=== PATIENT | female | born 1980 | race Caucasian/White ===

== ENCOUNTER 2017-11-12 04:23 | Inpatient (IN) | payer OTHER ==
[2017-11-12] MEDS ORDERED: NACL 0.9% 1000 ML 1,000 ML IV ONE ×3 (05:37→14:19)
[2017-11-12 06:00] LABS: Hematocrit 41.4 % (30.3-42.9); Hemoglobin 13.3 gm/dl (10.1-14.3); Mean Corpuscular HGB Conc 32 % (30-34); Mean Corpuscular Hemoglobin 31 pg (28-32); Mean Corpuscular Volume 97 fl (79-97); Platelet Count 367 K/mm3 (140-440); Red Blood Count 4.29 M/mm3 (3.65-5.03); Red Cell Distribution Width 14.3 % (13.2-15.2)
[2017-11-12 06:22] LABS: Alanine Aminotransferase 16 units/L (7-56); Albumin 4.7 g/dL (3.9-5); BUN/Creatinine Ratio 28; Blood Urea Nitrogen 22 mg/dL (7-17); Calcium 9.6 mg/dL (8.4-10.2); Hemolysis Index 7
[2017-11-12 06:44] LABS: Bacteria,Urine 1+ /HPF (Negative); Bilirubin,Urine NEG (Negative); Blood,Urine LG (Negative); Color,Urine Yellow (Yellow); Mucus,Urine FEW /HPF; Urobilinogen,Urine < 2.0 mg/dL (<2.0)
[2017-11-12] MEDS ORDERED: NACL 0.9% 1000 ML IV ONE (06:47)
[2017-11-12] MEDS ORDERED: SUBLIMAZE IV ONE (06:49)
[2017-11-12] MEDS ORDERED: ZOFRAN IV ONE (06:49)
[2017-11-12] MEDS ORDERED: D50W (25GM) Syringe IV PRN ×2 (06:58→09:55)
[2017-11-12] MEDS ORDERED: HumuLIN R IV ONE (06:58)
[2017-11-12] MEDS ORDERED: SODIUM BICARBONATE IV ONE ×6 (06:58→15:00)
--- NOTE | 2017-11-12 06:59 | Emergency Department Report ---
ED General Adult HPI - General Chief complaint: Abdominal Pain Stated complaint: DIZZINESS/EMESIS/ABD PAIN Source: patient Mode of arrival: Ambulatory Limitations: No Limitations - History of Present Illness Initial comments: This is a 37-year-old female who is not known to this provider, who reports a past medical history of diabetes. She presents to the ER with a complaint of "diabetes." She reports that she has not taken her insulin since Sunday, and has diffuse abdominal pain, nausea, weakness, fatigue and malaise. The patient' s symptoms have been constant for the past 8 hours, they do not radiate anywhere , and the increased with palpation and they decrease with rest. -: Sudden Location: abdomen Radiation: non-radiation Quality: aching Consistency: constant Improves with: rest Worsens with: movement Associated Symptoms: loss of appetite, malaise, nausea/vomiting, weakness. denies: confusion, chest pain, cough, diaphoresis, fever/chills, headaches, rash , seizure, shortness of breath, syncope - Related Data Allergies Allergy/AdvReac Type Severity Reaction Status Date / Time No Known Allergies Allergy Unverified 11/12/17 05:28 ED Review of Systems ROS: Stated complaint: DIZZINESS/EMESIS/ABD PAIN Other details as noted in HPI Comment: All other systems reviewed and negative ED Past Medical Hx - Past Medical History Previous Medical History?: Yes Hx Diabetes: Yes - Surgical History Past Surgical History?: No - Social History Smoking Status: Never Smoker ED Physical Exam - General Limitations: No Limitations General appearance: lethargic, in distress - Head Head exam: Present: atraumatic, normocephalic - Eye Eye exam: Present: normal appearance, EOMI. Absent: nystagmus - ENT ENT exam: Present: mucous membranes dry - Neck Neck exam: Present: normal inspection, full ROM - Respiratory Respiratory exam: Present: normal lung sounds bilaterally. Absent: respiratory distress - Cardiovascular Cardiovascular Exam: Present: regular rate, normal rhythm, normal heart sounds. Absent: bradycardia, tachycardia, irregular rhythm, systolic murmur, diastolic murmur, rubs, gallop - GI/Abdominal GI/Abdominal exam: Present: soft, tenderness. Absent: distended, guarding, rebound, rigid, pulsatile mass - Extremities Exam Extremities exam: Present: normal inspection, full ROM, other (2+ pulses noted in the bilateral upper, lower extremities. Compartments soft. No long bony tenderness. The pelvis is stable.). Absent: pedal edema, joint swelling, calf tenderness - Back Exam Back exam: Present: normal inspection, full ROM. Absent: tenderness, CVA tenderness (R), paraspinal tenderness, vertebral tenderness - Neurological Exam Neurological exam: Present: alert, oriented X3, CN II-XII intact, other ( Extraocular movements intact. Tongue midline. No facial droop. Facial sensation intact to light touch in the V1, V2, V3 distribution bilaterally. 5 and 5 strength in 4 extremities.. Sensation is intact to light touch in 4 extremities.). Absent: motor sensory deficit - Psychiatric Psychiatric exam: Present: anxious - Skin Skin exam: Present: warm, dry, intact, normal color. Absent: rash ED Course Vital Signs 11/12/17 11/12/17 11/12/17 05:30 06:36 06:45 Temperature 97.6 F Pulse Rate 94 H 103 H Respiratory 12 24 Rate Blood Pressure 102/65 111/41 Blood Pressure [Left] O2 Sat by Pulse 97 100 100 Oximetry 11/12/17 11/12/17 11/12/17 06:55 07:01 07:15 Temperature 95.5 F L Pulse Rate 103 H 100 H 106 H Respiratory 16 23 23 Rate Blood Pressure 110/63 95/45 Blood Pressure 111/41 [Left] O2 Sat by Pulse 100 100 100 Oximetry 11/12/17 07:16 Temperature Pulse Rate Respiratory 16 Rate Blood Pressure Blood Pressure [Left] O2 Sat by Pulse Oximetry ED Medical Decision Making - Lab Data Result diagrams: 11/12/17 05:43 11/12/17 07:00 Vital Signs 11/12/17 11/12/17 11/12/17 05:30 06:36 06:45 Temperature 97.6 F Pulse Rate 94 H 103 H Respiratory 12 24 Rate Blood Pressure 102/65 111/41 Blood Pressure [Left] O2 Sat by Pulse 97 100 100 Oximetry 11/12/17 11/12/17 11/12/17 06:55 07:01 07:15 Temperature 95.5 F L Pulse Rate 103 H 100 H 106 H Respiratory 16 23 23 Rate Blood Pressure 110/63 95/45 Blood Pressure 111/41 [Left] O2 Sat by Pulse 100 100 100 Oximetry 11/12/17 07:16 Temperature Pulse Rate Respiratory 16 Rate Blood Pressure Blood Pressure [Left] O2 Sat by Pulse Oximetry Lab Results 11/12/17 11/12/17 11/12/17 Range/Units 05:43 05:43 05:43 WBC 20.3 H (4.5-11.0) K/mm3 RBC 4.29 (3.65-5.03) M/mm3 Hgb 13.3 (10.1-14.3) gm/dl Hct 41.4 (30.3-42.9) % MCV 97 (79-97) fl MCH 31 (28-32) pg MCHC 32 (30-34) % RDW 14.3 (13.2-15.2) % Plt Count 367 (140-440) K/mm3 VBG pH (7.320-7.420) Sodium 132 L (137-145) mmol/L Potassium 5.6 H (3.6-5.0) mmol/L Chloride 89.6 L (98-107) mmol/L Carbon Dioxide 6 L* (22-30) mmol/L Anion Gap 42 mmol/L BUN 22 H (7-17) mg/dL Creatinine 0.8 (0.7-1.2) mg/dL Estimated GFR > 60 ml/min BUN/Creatinine Ratio 28 % Glucose 623 H* (65-100) mg/dL Lactic Acid (0.7-2.0) mmol/L Calcium 9.6 (8.4-10.2) mg/dL Phosphorus (2.5-4.5) mg/dL Magnesium (1.7-2.3) mg/dL Total Bilirubin 0.20 (0.1-1.2) mg/dL AST 19 (5-40) units/L ALT 16 (7-56) units/L Alkaline Phosphatase 139 H (35-129) units/L Total Creatine Kinase (30-135) units/L Total Protein 8.1 (6.3-8.2) g/dL Albumin 4.7 (3.9-5) g/dL Albumin/Globulin Ratio 1.4 % Lipase (13-60) units/L HCG, Qual Negative (Negative) Urine Color (Yellow) Urine Turbidity (Clear) Urine pH (5.0-7.0) Ur Specific [place] (1.003-1.030) Urine Protein (Negative) mg/dL Urine Glucose (UA) (Negative) mg/dL Urine Ketones (Negative) mg/dL Urine Blood (Negative) Urine Nitrite (Negative) Urine Bilirubin (Negative) Urine Urobilinogen (<2.0) mg/dL Ur Leukocyte Esterase (Negative) Urine WBC (Auto) (0.0-6.0) /HPF Urine RBC (Auto) (0.0-6.0) /HPF U Epithel Cells (Auto) (0-13.0) /HPF Urine Bacteria (Auto) (Negative) /HPF Urine Mucus /HPF 11/12/17 11/12/17 11/12/17 Range/Units 05:43 05:43 06:06 WBC (4.5-11.0) K/mm3 RBC (3.65-5.03) M/mm3 Hgb (10.1-14.3) gm/dl Hct (30.3-42.9) % MCV (79-97) fl MCH (28-32) pg MCHC (30-34) % RDW (13.2-15.2) % Plt Count (140-440) K/mm3 VBG pH 7.022 L* (7.320-7.420) Sodium (137-145) mmol/L Potassium (3.6-5.0) mmol/L Chloride (98-107) mmol/L Carbon Dioxide (22-30) mmol/L Anion Gap mmol/L BUN (7-17) mg/dL Creatinine (0.7-1.2) mg/dL Estimated GFR ml/min BUN/Creatinine Ratio % Glucose (65-100) mg/dL Lactic Acid (0.7-2.0) mmol/L Calcium (8.4-10.2) mg/dL Phosphorus (2.5-4.5) mg/dL Magnesium (1.7-2.3) mg/dL Total Bilirubin (0.1-1.2) mg/dL AST (5-40) units/L ALT (7-56) units/L Alkaline Phosphatase (35-129) units/L Total Creatine Kinase (30-135) units/L Total Protein (6.3-8.2) g/dL Albumin (3.9-5) g/dL Albumin/Globulin Ratio % Lipase 15 (13-60) units/L HCG, Qual (Negative) Urine Color Yellow (Yellow) Urine Turbidity Clear (Clear) Urine pH 5.0 (5.0-7.0) Ur Specific [place] 1.022 (1.003-1.030) Urine Protein 30 mg/dl (Negative) mg/dL Urine Glucose (UA) >=500 (Negative) mg/dL Urine Ketones 80 (Negative) mg/dL Urine Blood Lg (Negative) Urine Nitrite Neg (Negative) Urine Bilirubin Neg (Negative) Urine Urobilinogen < 2.0 (<2.0) mg/dL Ur Leukocyte Esterase Neg (Negative) Urine WBC (Auto) 1.0 (0.0-6.0) /HPF Urine RBC (Auto) 71.0 (0.0-6.0) /HPF U Epithel Cells (Auto) 1.0 (0-13.0) /HPF Urine Bacteria (Auto) 1+ (Negative) /HPF Urine Mucus Few /HPF 11/12/17 11/12/17 11/12/17 Range/Units 07:00 07:00 07:00 WBC (4.5-11.0) K/mm3 RBC (3.65-5.03) M/mm3 Hgb (10.1-14.3) gm/dl Hct (30.3-42.9) % MCV (79-97) fl MCH (28-32) pg MCHC (30-34) % RDW (13.2-15.2) % Plt Count (140-440) K/mm3 VBG pH (7.320-7.420) Sodium (137-145) mmol/L Potassium (3.6-5.0) mmol/L Chloride (98-107) mmol/L Carbon Dioxide (22-30) mmol/L Anion Gap mmol/L BUN (7-17) mg/dL Creatinine (0.7-1.2) mg/dL Estimated GFR ml/min BUN/Creatinine Ratio % Glucose (65-100) mg/dL Lactic Acid 3.90 H* (0.7-2.0) mmol/L Calcium (8.4-10.2) mg/dL Phosphorus (2.5-4.5) mg/dL Magnesium 2.50 H (1.7-2.3) mg/dL Total Bilirubin (0.1-1.2) mg/dL AST (5-40) units/L ALT (7-56) units/L Alkaline Phosphatase (35-129) units/L Total Creatine Kinase 70 (30-135) units/L Total Protein (6.3-8.2) g/dL Albumin (3.9-5) g/dL Albumin/Globulin Ratio % Lipase (13-60) units/L HCG, Qual (Negative) Urine Color (Yellow) Urine Turbidity (Clear) Urine pH (5.0-7.0) Ur Specific [place] (1.003-1.030) Urine Protein (Negative) mg/dL Urine Glucose (UA) (Negative) mg/dL Urine Ketones (Negative) mg/dL Urine Blood (Negative) Urine Nitrite (Negative) Urine Bilirubin (Negative) Urine Urobilinogen (<2.0) mg/dL Ur Leukocyte Esterase (Negative) Urine WBC (Auto) (0.0-6.0) /HPF Urine RBC (Auto) (0.0-6.0) /HPF U Epithel Cells (Auto) (0-13.0) /HPF Urine Bacteria (Auto) (Negative) /HPF Urine Mucus /HPF 11/12/17 11/12/17 Range/Units 07:00 07:00 WBC (4.5-11.0) K/mm3 RBC (3.65-5.03) M/mm3 Hgb (10.1-14.3) gm/dl Hct (30.3-42.9) % MCV (79-97) fl MCH (28-32) pg MCHC (30-34) % RDW (13.2-15.2) % Plt Count (140-440) K/mm3 VBG pH (7.320-7.420) Sodium 134 L (137-145) mmol/L Potassium 5.5 H (3.6-5.0) mmol/L Chloride 90.7 L (98-107) mmol/L Carbon Dioxide 6 L* (22-30) mmol/L Anion Gap 43 mmol/L BUN 23 H (7-17) mg/dL Creatinine 0.8 (0.7-1.2) mg/dL Estimated GFR > 60 ml/min BUN/Creatinine Ratio 29 % Glucose 643 H* (65-100) mg/dL Lactic Acid (0.7-2.0) mmol/L Calcium 9.8 (8.4-10.2) mg/dL Phosphorus 7.20 H (2.5-4.5) mg/dL Magnesium (1.7-2.3) mg/dL Total Bilirubin (0.1-1.2) mg/dL AST (5-40) units/L ALT (7-56) units/L Alkaline Phosphatase (35-129) units/L Total Creatine Kinase (30-135) units/L Total Protein (6.3-8.2) g/dL Albumin (3.9-5) g/dL Albumin/Globulin Ratio % Lipase (13-60) units/L HCG, Qual (Negative) Urine Color (Yellow) Urine Turbidity (Clear) Urine pH (5.0-7.0) Ur Specific [place] (1.003-1.030) Urine Protein (Negative) mg/dL Urine Glucose (UA) (Negative) mg/dL Urine Ketones (Negative) mg/dL Urine Blood (Negative) Urine Nitrite (Negative) Urine Bilirubin (Negative) Urine Urobilinogen (<2.0) mg/dL Ur Leukocyte Esterase (Negative) Urine WBC (Auto) (0.0-6.0) /HPF Urine RBC (Auto) (0.0-6.0) /HPF U Epithel Cells (Auto) (0-13.0) /HPF Urine Bacteria (Auto) (Negative) /HPF Urine Mucus /HPF - Radiology Data Radiology results: report reviewed, image reviewed CT scan of the abdomen and pelvis with IV contrast is negative for acute disease. X-ray of the chest is negative for acute disease - Medical Decision Making Differential diagnosis, including but not limited to: Dehydration, pneumonia, urinary tract infection, intra-abdominal infection, diabetic ketoacidosis, sepsis, SIRS Assessment and plan: 37-year-old female who appears to be in diabetic ketoacidosis, with the most likely causative actor and medication noncompliance. She has an elevated lactic acid, leukocytosis and heart rate greater than 90 bpm. She therefore needs systemic inflammatory response syndrome criteria. I suspect that her abnormal vital signs and laboratory studies are secondary to the physiologic stress of her underlying endocrine crisis. By her history I do not suspect bacterial infection. However, she will be covered empirically with appropriate broad spectrum antibiotics. She will be resuscitated according to the sepsis pathway in diabetic ketoacidosis pathway. We have placed 2 pages to the critical-care physician mediation commissioner to arrange admission to the intensive care unit and we are currently awaiting callback. The case was presented to the Hospital physician, Dr. Walton, who graciously accept the patient on behalf of Dr. Arteaga Critical Care Time: Yes Critical care time in (mins) excluding proc time.: 35 Critical care attestation.: If time is entered above; I have spent that time in minutes in the direct care of this critically ill patient, excluding procedure time. ED Disposition Clinical Impression: SIRS (systemic inflammatory response syndrome) DKA (diabetic ketoacidoses) Qualifiers: Diabetes mellitus type: other specified (including SATURNINO) Diabetes mellitus complication detail: without coma Qualified Code(s): E13.10 - Other specified diabetes mellitus with ketoacidosis without coma Disposition: DC09 OP ADMIT IP TO THIS HOSP Is pt being admited?: Yes Condition: Critical Instructions: Diabetic Ketoacidosis (ED), Abdominal Pain (ED)
[2017-11-12] MEDS ORDERED: D5W/0.45% NACL/KCL 20 MEQ 20 MEQ/1,000 ML BAG IV SCH (07:00)
[2017-11-12] MEDS ORDERED: SODIUM CHLORIDE FLUSH SYRINGE 10 ML IV NR (07:00)
[2017-11-12] MEDS ORDERED: HumuLIN R 100 UNITS in NACL 0.9% 99 ML IV SCH ×2 (07:00→10:00)
[2017-11-12] MEDS: ZOSYN/NS 4.5GM/100ML 4.5 GM/100 ML VIAL IV SCH ×3 (07:19→17:34)
--- NOTE | 2017-11-12 07:19 | XRay Report ---
FINAL REPORT PROCEDURE: XR CHEST 1V AP TECHNIQUE: Chest radiograph anteroposterior view. CPT 37912 HISTORY: sepsis COMPARISON: No prior studies are available for comparison. FINDINGS: Heart: Normal. Mediastinum/Vessels: Normal. Lungs/Pleural space: Normal. Bony thorax: No acute osseous abnormality. Life support devices: None. IMPRESSION: No acute cardiopulmonary abnormality.
[2017-11-12 07:30] LABS: BUN/Creatinine Ratio 29; Blood Urea Nitrogen 23 mg/dL (7-17); Calcium 9.8 mg/dL (8.4-10.2); Hemolysis Index 37
--- NOTE | 2017-11-12 08:05 | Cat Scan Report ---
CT ABDOMEN PELVIS WITH CONTRAST: HISTORY: abdominal pain, sepsis. COMPARISON: none. TECHNIQUE: Helical CT in 1.25mm intervals following IV contrast. Sagittal and coronal reconstructions. FINDINGS: Lung bases: Normal. Liver: There is mild diffuse fatty infiltration throughout the liver. No enlargement or suspicious mass. 1 cm cavernous hemangiomas are noted in the left hepatic lobe and right hepatic lobe. Biliary system: Normal. Pancreas: Normal. Spleen: Normal. Kidneys/ureters/bladder: The kidneys and collecting systems are within normal limits. The bladder is moderately distended with simple appearing fluid. No bladder abnormality otherwise. Adrenal glands: Normal. Aorta: Normal. Intestines: Unremarkable given no oral contrast was administered. Appendix: Normal. Pelvic viscera: The uterus is at the upper limits of normal size. Approximately 5 or 6 myometrial masses are identified consistent with small fibroids. The adnexa are unremarkable. Ascites: None. Adenopathy: None. Musculoskeletal: Normal. IMPRESSION: No acute process is identified in the abdomen or pelvis. Mild fatty infiltration of the liver. Few scattered cavernous hemangiomas of the liver. Mild uterine fibroid disease.
[2017-11-12 09:34] LABS: BUN/Creatinine Ratio 32; Blood Urea Nitrogen 19 mg/dL (7-17); Calcium 8.3 mg/dL (8.4-10.2); Hemolysis Index 23
--- NOTE | 2017-11-12 09:47 | History and Physical Report ---
History of Present Illness Date of examination: 11/12/17 Date of admission: 11/12/17 08:20 Chief complaint: Abdominal pain with nausea vomiting, and very elevated blood sugar. History of present illness: Patient is a 37-year-old lady who has a history diabetes mellitus type 1, forgot her insulin while visiting her boyfriend over the weekend. She therefor did not take any insulin form sunday night till sunday evening when she started vomiting afteer a dinner of fish at about nid night. She strted vomiting therfater x 7. Vomitius was clear colored. Associated with generalized abdominal pain, 7-8/10 in severity with no aggravating or relieving factors. Had no diarrhea. Patient has a polyuria and polydipsia. Denies any fever or chills. Progressively was getting weak with frightening palpitation for which she requested her boyfriend to bring her to the ED. On arrive to the Ed blood sugar was 643 with carbon dioxide of 6 and venous Ph of 7.02. Admission was requested Past History Past Medical History: diabetes Medications and Allergies Allergies Allergy/AdvReac Type Severity Reaction Status Date / Time No Known Allergies Allergy Unverified 11/12/17 05:28 Active Meds: Active Medications Dextrose (D50w (25gm) Syringe) 0 ml IV PRN PRN PRN Reason: Hypoglycemia Piperacillin Sod/Tazobactam Sod (Zosyn/Ns 4.5gm/100ml) 4.5 gm in 100 mls @ 200 mls/hr IV Q8H SILVESTRE; Protocol Last Admin: 11/12/17 08:01 Dose: Not Given Potassium Chloride/Dextrose/Sod Cl (D5w/0.45% Nacl/Kcl 20 Meq) 20 meq in 1,000 mls @ 125 mls/hr IV DIRECT SILVESTRE Insulin Human Regular 100 (units/ Sodium Chloride) 100 mls @ 1 mls/hr IV TITR SILVESTRE; Protocol Last Admin: 11/12/17 09:15 Dose: 8 units/hr, 8 mls/hr Sodium Chloride (Sodium Chloride Flush Syringe 10 Ml) 10 ml IV PRN NR Stop: 11/13/17 06:59 Review of systems Constitutional: Well Nouridhed and Well developed. Head: NC/ AT Eyes: Denies any visual impairments. No discharge from the eyes Nose: Denies any rhinorrhea or epistaxis Throats: Denies any post nasal drainage. Ears: Denies any hearing deficits Cardiovascular system: Denies any chest pain, shortness of breath, orthopnea, paroxysmal nocturnal dyspnea, or palpitation. Respiratory system: Denies any cough, difficulty breathing, wheezing, pleuritic chest pain, Gastrointestinal system: Denies any abdominal pain, nausea vomiting, hematemesis or melena. Neurological system: Denies any headache, slurred speech, facial droop, lateralizing weakness Genitalia system: Denies any dysuria, urinary frequency or urgency, urethral discharge Skin: No rashes, hyperpigmented spots. Hematological: Denies any cervical tenderness hemorrhages or petechia. Immunological: Denies any multiple septic spots, Lymphatic: Denies any generalized lymphadenopathy. Endocrine: Has polyuria, polydipsia, polyphagia. No heat or cold intolerance. Musculoskeletal system: No joint pain or swelling. Psych: No visual, tactile, auditory or hallucination Exam - Physical Exam Narrative exam: Constitutional: Has dry mucous membrane of the lips and dry tongue. Awake oriented. Interactive. In no distress. afebrile Head: Normocephalic atraumatic Eyes: Pupils are equal round and reactive to light Nose: No enlarged turbinates, no septal deviation. Mouth: Dry mucous membranes. Neck: Supple no thyromegaly. No bruit. No JVD Heart: Regular rate and rhythm, S1-S2 abnormal. No rubs murmurs or gallop Lungs: Clear to auscultation bilaterally no rales or rhonchi Abdomen: Soft, nontender. Bowel sound are present. Extremities: No edema no cyanosis and no clubbing. Neuro: Alert oriented Oriented x3. No focal sensory or motor deficit. Skin: No rashes no hyperemic spots Psychiatry: Euthymic. Calm. - Constitutional Vitals: Temp Pulse Resp BP Pulse Ox 95.5 F L 106 H 16 95/45 100 11/12/17 06:55 11/12/17 07:15 11/12/17 07:16 11/12/17 07:15 11/12/17 07:15 Results - Labs CBC & Chem 7: 11/12/17 05:43 11/12/17 08:57 Labs: Abnormal lab results 11/12/17 11/12/17 11/12/17 Range/Units 05:43 05:43 05:43 WBC 20.3 H (4.5-11.0) K/mm3 VBG pH 7.022 L* (7.320-7.420) Sodium 132 L (137-145) mmol/L Potassium 5.6 H (3.6-5.0) mmol/L Chloride 89.6 L (98-107) mmol/L Carbon Dioxide 6 L* (22-30) mmol/L BUN 22 H (7-17) mg/dL Creatinine (0.7-1.2) mg/dL Glucose 623 H* (65-100) mg/dL POC Glucose (70-105) Lactic Acid (0.7-2.0) mmol/L Phosphorus (2.5-4.5) mg/dL Magnesium (1.7-2.3) mg/dL Alkaline Phosphatase 139 H (35-129) units/L 11/12/17 11/12/17 11/12/17 Range/Units 07:00 07:00 07:00 WBC (4.5-11.0) K/mm3 VBG pH (7.320-7.420) Sodium (137-145) mmol/L Potassium (3.6-5.0) mmol/L Chloride (98-107) mmol/L Carbon Dioxide (22-30) mmol/L BUN (7-17) mg/dL Creatinine (0.7-1.2) mg/dL Glucose (65-100) mg/dL POC Glucose (70-105) Lactic Acid 3.90 H* (0.7-2.0) mmol/L Phosphorus 7.20 H (2.5-4.5) mg/dL Magnesium 2.50 H (1.7-2.3) mg/dL Alkaline Phosphatase (35-129) units/L 11/12/17 11/12/17 11/12/17 Range/Units 07:00 08:57 09:16 WBC (4.5-11.0) K/mm3 VBG pH (7.320-7.420) Sodium 134 L (137-145) mmol/L Potassium 5.5 H (3.6-5.0) mmol/L Chloride 90.7 L (98-107) mmol/L Carbon Dioxide 6 L* (22-30) mmol/L BUN 23 H 19 H (7-17) mg/dL Creatinine 0.6 L (0.7-1.2) mg/dL Glucose 643 H* 449 H (65-100) mg/dL POC Glucose 424 H (70-105) Lactic Acid (0.7-2.0) mmol/L Phosphorus (2.5-4.5) mg/dL Magnesium (1.7-2.3) mg/dL Alkaline Phosphatase (35-129) units/L Assessment and Plan Diabetic ketoacidosis Diabetes mellitus type 1 Leukocytosis SIRS Abdomen pain Nausea vomiting Metabolic acidosis Admit to ICU Normal saline bolus. 2 L was given. We'll give another liter DKA protocol-normal saline infusion, IV insulin with a blood sugar monitor q hrly BMP, with magnesium and phosphorus levels every 8hrs, supplemented electrolytes deficiencies is anticipated IV Zofran IV Pepcid iv Levaquin DVT prophylaxis with SCDs and lovenox
[2017-11-12] MEDS ORDERED: ZOFRAN IV PRN (09:58)
[2017-11-12] MEDS ORDERED: LEVAQUIN 500MG/100ML 500 MG/100 ML BAG IV SCH (11:00)
[2017-11-12] MEDS: PEPCID IV SCH ×2 (11:23→22:46)
[2017-11-12 12:00] LABS: BUN/Creatinine Ratio 28; Blood Urea Nitrogen 17 mg/dL (7-17); Calcium 8.1 mg/dL (8.4-10.2); Hemolysis Index 18
[2017-11-12 12:02] LABS: Chol/HDL Ratio 4.01 %
[2017-11-12 12:26] LABS: BUN/Creatinine Ratio 28; Blood Urea Nitrogen 17 mg/dL (7-17); Calcium 8.1 mg/dL (8.4-10.2); Hemolysis Index 8
[2017-11-12] MEDS: D5W/0.45% NACL/KCL 20 MEQ 20 MEQ/1,000 ML BAG IV SCH (12:57)
[2017-11-12 13:39] LABS: BUN/Creatinine Ratio 28; Blood Urea Nitrogen 14 mg/dL (7-17); Calcium 7.6 mg/dL (8.4-10.2); Hemolysis Index 10
[2017-11-12 14:12] LABS: Basophils % (Manual) 0 % (0.0-1.8); Eosinophils % (Manual) 0 % (0.0-4.3); Platelet Estimate Cons; RBC Morphology Normal; Total Cells Counted 200; Toxic Granulation 2+
[2017-11-12 14:27] LABS: Blood Urea Nitrogen 14 mg/dL (7-17); Calcium 7.7 mg/dL (8.4-10.2); Hemolysis Index 9
[2017-11-12 15:50] LABS: BUN/Creatinine Ratio 23
[2017-11-12 16:33] LABS: BUN/Creatinine Ratio 20; Blood Urea Nitrogen 12 mg/dL (7-17); Calcium 7.1 mg/dL (8.4-10.2); Hemolysis Index 2
[2017-11-12 17:11] LABS: Creatinine,Urine 10.4 mg/dL (0.1-20.0); Microalbumin/Creatinine Ratio 240.3 ug/mg
[2017-11-12 18:48] LABS: BUN/Creatinine Ratio 22; Blood Urea Nitrogen 11 mg/dL (7-17); Calcium 7.1 mg/dL (8.4-10.2); Hemolysis Index 2
[2017-11-12 19:02] LABS: BUN/Creatinine Ratio 20; Blood Urea Nitrogen 10 mg/dL (7-17); Hemolysis Index 3
[2017-11-12] MEDS ORDERED: LOVENOX SUB-Q SCH (22:00)
[2017-11-13 00:21] LABS: BUN/Creatinine Ratio 18; Blood Urea Nitrogen 9 mg/dL (7-17); Calcium 6.9 mg/dL (8.4-10.2); Hemolysis Index 3
[2017-11-13] MEDS ORDERED: NACL 0.9% 500 ML 500 ML IV ONE (01:20)
[2017-11-13] MEDS ORDERED: NACL 0.9% 1000 ML 1,000 ML ONE (01:23)
[2017-11-13] MEDS: ZOSYN/NS 4.5GM/100ML 4.5 GM/100 ML VIAL IV SCH (01:45)
[2017-11-13 03:35] LABS: BUN/Creatinine Ratio 23; Blood Urea Nitrogen 9 mg/dL (7-17); Calcium 6.7 mg/dL (8.4-10.2); Hemolysis Index 12
[2017-11-13] MEDS ORDERED: NACL 0.9% 500 ML 500 ML ONE (04:30)
[2017-11-13] MEDS: D5W/0.45% NACL/KCL 20 MEQ 20 MEQ/1,000 ML BAG IV SCH (05:00)
--- NOTE | 2017-11-13 08:24 | Progress Note ---
Assessment and Plan Assessment and plan: Patient is a 37 yo woman with history of IDDM type 1 who pw N/V/Abdominal pains. According to chart, she did not take her insulin and developed DKA with the accompanying symptoms. On arrive to the Ed blood sugar was 643 with carbon dioxide of 6 and venous Ph of 7.02. -Diabetic KetoAcidosis (DKA): follow anion gap, continue hydration and insulin -Diabetes mellitus type 1, uncontrolled with hyperglycemia: treat with insulin and IVF -Leukocytosis with SIRS with suspect Sepsis from AGE, poa: on 2 IV abx: follow cultures -Abdomen pain with Nausea vomiting: treat with antiemetics prn -Metabolic acidosis with high anion gap, which has closed: transition to sq insulin -DVT/GI prophylaxis: sq lovenox and protonix transfer to medical floor off insulin drip. CCT 32 minutes History Interval history: Patient was seen and examined. Follow-up on current diagnosis of n/v/abd pains. Overnight uneventful. Patient denies any chest pain, shortness breath or severe headaches. Imaging, nursing note, chart, labs and old chart reviewed. Discussed with patient. Hospitalist Physical - Physical exam Narrative exam: GEN: WDWN but thin woman, NAD, Awake, Alert, Orientated x 3, rechecked bp 90/58 , 75 HEENT: NCAT, EOMI, PERRL, OP Clear NECK: supple, no adenopathy, no thyromegaly, no JVD CVS/HEART: RRR, normal S1S2, pulses present bilaterally CHEST/LUNGS: CTA B, Symmetrical chest expansion, good air entry bilaterally GI/Abdomen: soft, NTND, good bowel sounds, no guarding or rebound /Bladder: no suprapubic tenderness, no CVA or paraspinal tenderness EXT/Skin: no c/c/e, no obvious rash MSK: FROM x 4 Neuro: CN 2-12 grossly intact, no new focal deficits Psych: calm - Constitutional Vitals: Temp Pulse Resp BP Pulse Ox 99 F 78 18 83/55 100 11/13/17 05:00 11/13/17 07:31 11/13/17 07:31 11/13/17 07:31 11/13/17 07:31 Results - Labs CBC & Chem 7: 11/12/17 05:43 11/13/17 07:35 Labs: Laboratory Last Values WBC 20.3 K/mm3 (4.5-11.0) H 11/12/17 05:43 RBC 4.29 M/mm3 (3.65-5.03) 11/12/17 05:43 Hgb 13.3 gm/dl (10.1-14.3) 11/12/17 05:43 Hct 41.4 % (30.3-42.9) 11/12/17 05:43 MCV 97 fl (79-97) 11/12/17 05:43 MCH 31 pg (28-32) 11/12/17 05:43 MCHC 32 % (30-34) 11/12/17 05:43 RDW 14.3 % (13.2-15.2) 11/12/17 05:43 Plt Count 367 K/mm3 (140-440) 11/12/17 05:43 Add Manual Diff Complete 11/12/17 05:43 Total Counted 200 11/12/17 05:43 Seg Neuts % (Manual) 89.0 % (40.0-70.0) H 11/12/17 05:43 Band Neutrophils % 0 % 11/12/17 05:43 Lymphocytes % (Manual) 8.0 % (13.4-35.0) L 11/12/17 05:43 Reactive Lymphs % (Man) 0 % 11/12/17 05:43 Monocytes % (Manual) 3.0 % (0.0-7.3) 11/12/17 05:43 Eosinophils % (Manual) 0 % (0.0-4.3) 11/12/17 05:43 Basophils % (Manual) 0 % (0.0-1.8) 11/12/17 05:43 Metamyelocytes % 0 % 11/12/17 05:43 Myelocytes % 0 % 11/12/17 05:43 Promyelocytes % 0 % 11/12/17 05:43 Blast Cells % 0 % 11/12/17 05:43 Nucleated RBC % Not Reportable 11/12/17 05:43 Seg Neutrophils # Man 18.1 K/mm3 (1.8-7.7) H 11/12/17 05:43 Band Neutrophils # 0.0 K/mm3 11/12/17 05:43 Lymphocytes # (Manual) 1.6 K/mm3 (1.2-5.4) 11/12/17 05:43 Abs React Lymphs (Man) 0.0 K/mm3 11/12/17 05:43 Monocytes # (Manual) 0.6 K/mm3 (0.0-0.8) 11/12/17 05:43 Eosinophils # (Manual) 0.0 K/mm3 (0.0-0.4) 11/12/17 05:43 Basophils # (Manual) 0.0 K/mm3 (0.0-0.1) 11/12/17 05:43 Metamyelocytes # 0.0 K/mm3 11/12/17 05:43 Myelocytes # 0.0 K/mm3 11/12/17 05:43 Promyelocytes # 0.0 K/mm3 11/12/17 05:43 Blast Cells # 0.0 K/mm3 11/12/17 05:43 WBC Morphology Not Reportable 11/12/17 05:43 Hypersegmented Neuts Not Reportable 11/12/17 05:43 Hyposegmented Neuts Not Reportable 11/12/17 05:43 Hypogranular Neuts Not Reportable 11/12/17 05:43 Smudge Cells Not Reportable 11/12/17 05:43 Toxic Granulation 2+ 11/12/17 05:43 Toxic Vacuolation Not Reportable 11/12/17 05:43 Dohle Bodies Not Reportable 11/12/17 05:43 Pelger-Huet Anomaly Not Reportable 11/12/17 05:43 Felipe Rods Not Reportable 11/12/17 05:43 Platelet Estimate Cons 11/12/17 05:43 Clumped Platelets Not Reportable 11/12/17 05:43 Plt Clumps, EDTA Not Reportable 11/12/17 05:43 Large Platelets Not Reportable 11/12/17 05:43 Giant Platelets Not Reportable 11/12/17 05:43 Platelet Satelliting Not Reportable 11/12/17 05:43 Plt Morphology Comment Not Reportable 11/12/17 05:43 RBC Morphology Normal 11/12/17 05:43 Dimorphic RBCs Not Reportable 11/12/17 05:43 Polychromasia Not Reportable 11/12/17 05:43 Hypochromasia Not Reportable 11/12/17 05:43 Poikilocytosis Not Reportable 11/12/17 05:43 Anisocytosis Not Reportable 11/12/17 05:43 Microcytosis Not Reportable 11/12/17 05:43 Macrocytosis Not Reportable 11/12/17 05:43 Spherocytes Not Reportable 11/12/17 05:43 Pappenheimer Bodies Not Reportable 11/12/17 05:43 Sickle Cells Not Reportable 11/12/17 05:43 Target Cells Not Reportable 11/12/17 05:43 Tear Drop Cells Not Reportable 11/12/17 05:43 Ovalocytes Not Reportable 11/12/17 05:43 Helmet Cells Not Reportable 11/12/17 05:43 Venutra-Lesslie Bodies Not Reportable 11/12/17 05:43 [place] Rings Not Reportable 11/12/17 05:43 Hortencia Cells Not Reportable 11/12/17 05:43 Bite Cells Not Reportable 11/12/17 05:43 Crenated Cell Not Reportable 11/12/17 05:43 Elliptocytes Not Reportable 11/12/17 05:43 Acanthocytes (Spur) Not Reportable 11/12/17 05:43 Rouleaux Not Reportable 11/12/17 05:43 Hemoglobin C Crystals Not Reportable 11/12/17 05:43 Schistocytes Not Reportable 11/12/17 05:43 Malaria parasites Not Reportable 11/12/17 05:43 Willard Bodies Not Reportable 11/12/17 05:43 Hem Pathologist Commnt No 11/12/17 05:43 POC ABG pH 7.293 (7.35-7.45) L 11/12/17 13:58 POC ABG pCO2 21.8 (35-45) L 11/12/17 13:58 POC ABG pO2 110 (80-105) H 11/12/17 13:58 POC ABG HCO3 10.6 11/12/17 13:58 POC ABG Total CO2 11 11/12/17 13:58 POC ABG O2 Sat 98 11/12/17 13:58 POC ABG Base Excess -16 11/12/17 13:58 VBG pH 7.022 (7.320-7.420) L* 11/12/17 05:43 FiO2 21 % 11/12/17 13:58 Sodium 143 mmol/L (137-145) 11/13/17 02:47 Potassium 3.2 mmol/L (3.6-5.0) L 11/13/17 02:47 Chloride 112.0 mmol/L (98-107) H 11/13/17 02:47 Carbon Dioxide 16 mmol/L (22-30) L 11/13/17 02:47 Anion Gap 18 mmol/L 11/13/17 02:47 BUN 9 mg/dL (7-17) 11/13/17 02:47 Creatinine 0.4 mg/dL (0.7-1.2) L 11/13/17 02:47 Estimated GFR > 60 ml/min 11/13/17 02:47 BUN/Creatinine Ratio 23 % 11/13/17 02:47 Glucose 127 mg/dL (65-100) H 11/13/17 02:47 POC Glucose 123 (70-105) H 11/13/17 05:34 Hemoglobin A1c 10.5 % (4-6) H 11/12/17 11:02 Lactic Acid 0.90 mmol/L (0.7-2.0) 11/12/17 22:35 Calcium 6.7 mg/dL (8.4-10.2) L 11/13/17 02:47 Phosphorus 3.20 mg/dL (2.5-4.5) D 11/12/17 11:02 Magnesium 2.00 mg/dL (1.7-2.3) 11/12/17 11:02 Total Bilirubin 0.20 mg/dL (0.1-1.2) 11/12/17 05:43 AST 19 units/L (5-40) 11/12/17 05:43 ALT 16 units/L (7-56) 11/12/17 05:43 Alkaline Phosphatase 139 units/L (35-129) H 11/12/17 05:43 Total Creatine Kinase 70 units/L (30-135) 11/12/17 07:00 Total Protein 8.1 g/dL (6.3-8.2) 11/12/17 05:43 Albumin 4.7 g/dL (3.9-5) 11/12/17 05:43 Albumin/Globulin Ratio 1.4 % 11/12/17 05:43 Triglycerides 254 mg/dL (2-149) H 11/12/17 11:02 Cholesterol 229 mg/dL (50-199) H 11/12/17 11:02 LDL Cholesterol Direct 125 mg/dL (50-130) 11/12/17 11:02 HDL Cholesterol 57 mg/dL (40-59) 11/12/17 11:02 Cholesterol/HDL Ratio 4.01 % 11/12/17 11:02 Lipase 15 units/L (13-60) 11/12/17 05:43 HCG, Qual Negative (Negative) 11/12/17 05:43 Urine Color Yellow (Yellow) 11/12/17 06:06 Urine Turbidity Clear (Clear) 11/12/17 06:06 Urine pH 5.0 (5.0-7.0) 11/12/17 06:06 Ur Specific [place] 1.022 (1.003-1.030) 11/12/17 06:06 Urine Protein 30 mg/dl mg/dL (Negative) 11/12/17 06:06 Urine Glucose (UA) >=500 mg/dL (Negative) 11/12/17 06:06 Urine Ketones 80 mg/dL (Negative) 11/12/17 06:06 Urine Blood Lg (Negative) 11/12/17 06:06 Urine Nitrite Neg (Negative) 11/12/17 06:06 Urine Bilirubin Neg (Negative) 11/12/17 06:06 Urine Urobilinogen < 2.0 mg/dL (<2.0) 11/12/17 06:06 Ur Leukocyte Esterase Neg (Negative) 11/12/17 06:06 Urine WBC (Auto) 1.0 /HPF (0.0-6.0) 11/12/17 06:06 Urine RBC (Auto) 71.0 /HPF (0.0-6.0) 11/12/17 06:06 U Epithel Cells (Auto) 1.0 /HPF (0-13.0) 11/12/17 06:06 Urine Bacteria (Auto) 1+ /HPF (Negative) 11/12/17 06:06 Urine Mucus Few /HPF 11/12/17 06:06 Urine Creatinine 10.4 mg/dL (0.1-20.0) 11/12/17 09:40 Urine Microalbumin 2.5 mg/dL (0.1-34.0) 11/12/17 09:40 Microalb/Creat Ratio 240.3 ug/mg 11/12/17 09:40
[2017-11-13] MEDS ORDERED: REGLAN IV PRN (08:31)
[2017-11-13] MEDS ORDERED: TYLENOL PO PRN (08:31)
[2017-11-13] MEDS ORDERED: ZOFRAN IV PRN (08:32)
[2017-11-13] MEDS ORDERED: D50W (25GM) Syringe IV PRN (08:33)
[2017-11-13 08:59] LABS: BUN/Creatinine Ratio 20; Blood Urea Nitrogen 8 mg/dL (7-17); Calcium 6.3 mg/dL (8.4-10.2)
[2017-11-13] MEDS ORDERED: LANTUS SUB-Q ONE (09:00)
[2017-11-13] MEDS ORDERED: NACL 0.9% 1000 ML 1,000 ML IV SCH (09:00)
[2017-11-13 09:08] LABS: Hemolysis Index 5
[2017-11-13] MEDS ORDERED: PROTONIX PO SCH (10:00)
[2017-11-13] MEDS ORDERED: K-DUR PO ONE (10:00)
--- NOTE | 2017-11-13 11:50 | Discharge Summary ---
Providers - Providers Date of Admission: 11/12/17 08:20 Date of discharge: 11/13/17 Attending physician: VINAYAK ZAVALA 11/12/17 06:47 Consult to Physician [CONS] Stat Comment: Consulting Provider: GERSON GAR Physician Instructions: Reason For Exam: dka 11/12/17 09:55 Consult to Dietitian/Nutrition [CONS] Routine Physician Instructions: Reason For Exam: DKA Reason for Consult: Nutrition Recommendations Reason for Consult: Diet education Primary care physician: MAINTENANCE SUPERINTENDENT Hospitalization Condition: Stable Hospital course: Patient is a 37 yo woman with history of IDDM type 1 who pw N/V/Abdominal pains. On arrive to the Ed blood sugar was 643 with carbon dioxide of 6 and venous Ph of 7.02. She says she forget to take her over the counter 70/30. Her A1c is 10.5, so compliance is a big issue here. Counseling done. * CT abd/pelvis w/ contrast IMPRESSION: No acute process is identified in the abdomen or pelvis. Mild fatty infiltration of the liver. Few scattered cavernous hemangiomas of the liver. Mild uterine fibroid disease. * pCXR IMPRESSION: No acute cardiopulmonary abnormality. -Diabetic KetoAcidosis (DKA): follow anion gap, continue hydration and insulin -Diabetes mellitus type 1, uncontrolled with hyperglycemia: treat with insulin and IVF, Hemoglobin A1c is 10.5 -Leukocytosis with SIRS with suspect Sepsis from AGE (acute gastroenteritis), poa treated with abx: cultures negative so far -Abdomen pain with Nausea vomiting: treat with antiemetics prn -Metabolic acidosis with high anion gap, which has closed: transition to sq insulin -DVT/GI prophylaxis: sq lovenox and protonix [phone] cell number Disposition: DC- TO HOME OR SELFCARE Time spent for discharge: 34 minutes Core Measure Documentation - Palliative Care Palliative Care/ Comfort Measures: Not Applicable - Core Measures Any of the following diagnoses?: none - VTE Discharge Requirements Deep Vein Thrombosis/Pulmonary Embolism Present on Admission: No Has pt received <5 days of overlap therapy or INR<2.0: No Anticoagulant overlap therapy prescribed at discharge: No Contraindication No Overlap Therapy order at DC: Not Indicated Exam - Physical Exam Narrative exam: GEN: WDWN but thin woman, NAD, Awake, Alert, Orientated x 3, HEENT: NCAT, EOMI, PERRL, OP Clear NECK: supple, no adenopathy, no thyromegaly, no JVD CVS/HEART: RRR, normal S1S2, pulses present bilaterally CHEST/LUNGS: CTA B, Symmetrical chest expansion, good air entry bilaterally GI/Abdomen: soft, NTND, good bowel sounds, no guarding or rebound /Bladder: no suprapubic tenderness, no CVA or paraspinal tenderness EXT/Skin: no c/c/e, no obvious rash MSK: FROM x 4 Neuro: CN 2-12 grossly intact, no new focal deficits Psych: calm - Constitutional Vitals: Temp Pulse Resp BP Pulse Ox 97.9 F 79 21 91/56 100 11/13/17 08:00 11/13/17 09:00 11/13/17 09:00 11/13/17 09:00 11/13/17 09:00 Plan Activity: other (no strenous activity until cleared by PCP) Diet: low salt Special Instructions: record blood sugar diary (3 times a day with meals and at bedtime) Additional Instructions: Make an appointment with Dr. Brit Vásquez office to review Urine Culture results and Hemoglobin A1C results. Follow up with: PRIMARY CARE, [Primary Care Provider] - BRIT VÁSQUEZ MD [Staff Physician] - 3 Days Forms: Accompanied Note Prescriptions: Insulin Aspart [NovoLOG Flexpen] 1 dose SQ AC PRN #1 pen PRN Reason: Hyperglycemia Insulin Aspart Protam & Aspart [NovoLOG Mix 70-30 Flexpen] 25 units SQ QPM #1 Insulin Aspart Protam & Aspart [NovoLOG Mix 70-30 Flexpen] 35 units SQ QAM #1 insuln.pen levoFLOXacin [Levaquin TAB] 500 mg PO QDAY #6 tablet Pantoprazole [Protonix TAB] 40 mg PO QDAY #4 tablet
[2017-11-13] MEDS: HumaLOG SUB-Q SCH ×2 (14:21→16:57)
[2017-11-13 17:57] VITALS: BP 99/64
[2017-11-13] MEDS ORDERED: INSULIN ASPART PROTAM SQ SCH (18:00)
[2017-11-13] MEDS ORDERED: ASPART SQ SCH (18:00)
[2017-11-14] MEDS ORDERED: ASPART SQ SCH (10:00)
[2017-11-14] MEDS ORDERED: INSULIN ASPART PROTAM SQ SCH (10:00)
== END 2017-11-13 19:10 | disposition home or self-care (01) | DRG 871 ==
LOC: ED 04:23 → CC1 08:20 → 3A 11-13 11:24
PROVIDERS: ADMIT Family Medicine; ATTEND Internal Medicine
PROC: 4A033R1 Measurement of Arterial Saturation, Peripheral, Percutaneous Approach (ICD-10-PCS; principal; 2017-11-12)
DX: A41.9 Sepsis, unspecified organism (principal); E10.10 Type 1 diabetes mellitus with ketoacidosis without coma; R11.2 Nausea with vomiting, unspecified; K52.9 Noninfective gastroenteritis and colitis, unspecified; K76.0 Fatty (change of) liver, not elsewhere classified; D18.09 Hemangioma of other sites
CPT/HCPCS: 36415; 36600; 71045; 74177; 80048; 80053; 80061; 81001; 82043; 82140; 82550; 82803; 82805; 82962; 83036; 83690; 83735; 84100; 84703; 85007; 85025; 87040; 87086; 99291; J1650; J1815; J1956; J2405; J2543; J3010; J7030; J7040; Q9967

== ENCOUNTER 2019-07-20 03:35 | Inpatient (IN) | payer BC ==
[2019-07-20] MEDS ORDERED: SODIUM CHLORIDE 0.9% 1000 ML 1,000 ML IV ONE ×3 (03:49→04:48)
[2019-07-20] MEDS ORDERED: KETOROLAC 30 MG/1 ML INJ IV ONE (04:16)
[2019-07-20] MEDS ORDERED: FAMOTIDINE 20 MG/2 ML INJ IV ONE (04:16)
--- NOTE | 2019-07-20 04:19 | Emergency Department Report ---
ED N/V/D HPI - General Chief complaint: Hyperglycemia Stated complaint: HIGH BLOOD SUGAR Time Seen by Provider: 07/20/19 03:42 Source: patient, EMS Mode of arrival: Stretcher Limitations: No Limitations - History of Present Illness Initial comments: 39-year-old female the past medical history of insulin-dependent diabetes and previous DKA status post vaginal delivery 3 months ago presents to the hospital complaining of symptoms of hyperglycemia for the last 4 to 5 days. For the last 4-5 days patient's had increased thirst, increased urination, and increased hunger. She has been taking her regular insulin but ran out of her insulin NPH yesterday a.m. This evening she developed nausea, vomiting, and mild 3/10 mid abdominal pain associated with vomiting. Currently she complains of a mild headache and denies abdominal pain. She denies fever, dysuria, diarrhea, melena, or hematochezia. No previous abdominal surgeries reported. - Related Data Home Medications Medication Instructions Recorded Confirmed Last Taken Insulin NPH, Human [NovoLIN N] 38 unit SUB-Q QAM 07/20/19 07/20/19 Unknown Insulin Regular, Human [Humulin R] 15 unit SQ AC 07/20/19 07/20/19 Unknown Allergies Allergy/AdvReac Type Severity Reaction Status Date / Time No Known Allergies Allergy Unverified 11/12/17 05:28 ED Review of Systems ROS: Stated complaint: HIGH BLOOD SUGAR Other details as noted in HPI Comment: All other systems reviewed and negative ED Past Medical Hx - Past Medical History Previous Medical History?: Yes Hx Diabetes: Yes Hx Asthma: No Hx COPD: No - Social History Smoking Status: Never Smoker - Medications Home Medications: Home Medications Medication Instructions Recorded Confirmed Last Taken Type Insulin NPH, Human [NovoLIN N] 38 unit SUB-Q QAM 07/20/19 07/20/19 Unknown History Insulin Regular, Human [Humulin R] 15 unit SQ AC 07/20/19 07/20/19 Unknown History ED Physical Exam - General Limitations: No Limitations - Other Other exam information: General: No acute distress Head: Atraumatic Eyes: normal appearance ENT: Moist mucous membranes Neck: Normal appearance, no midline tenderness Chest: Clear to auscultation bilaterally CV: Regular rate and rhythm Abdomen: Soft, normal bowel sounds, nontender, nondistended, no rebound or guarding Back: Normal inspection Extremity: Normal inspection, full range of motion Neuro: Alert O x 3, no facial asymmetry, speech clear, no gross motor sensory deficit Psych: Appropriate behavior Skin: No rash ED Course Vital Signs 07/20/19 07/20/19 03:48 04:24 Temperature 98.4 F Pulse Rate 97 H Respiratory 20 18 Rate Blood Pressure 106/63 [Left] O2 Sat by Pulse 100 Oximetry ED Medical Decision Making - Lab Data Result diagrams: 07/20/19 04:25 07/20/19 04:25 Lab Results 07/20/19 07/20/19 07/20/19 Range/Units 04:12 04:25 04:25 WBC 9.2 (4.5-11.0) K/mm3 RBC 3.68 (3.65-5.03) M/mm3 Hgb 11.8 (10.1-14.3) gm/dl Hct 35.7 (30.3-42.9) % MCV 97 (79-97) fl MCH 32 (28-32) pg MCHC 33 (30-34) % RDW 12.8 L (13.2-15.2) % Plt Count 234 (140-440) K/mm3 Lymph % (Auto) 14.9 (13.4-35.0) % [place] % (Auto) 2.5 (0.0-7.3) % Eos % (Auto) 0.5 (0.0-4.3) % Baso % (Auto) 0.4 (0.0-1.8) % Lymph # 1.4 (1.2-5.4) K/mm3 [place]pine # 0.2 (0.0-0.8) K/mm3 Eos # 0.0 (0.0-0.4) K/mm3 Baso # 0.0 (0.0-0.1) K/mm3 Seg Neutrophils % 81.7 H (40.0-70.0) % Seg Neutrophils # 7.5 (1.8-7.7) K/mm3 VBG pH (7.320-7.420) Sodium 131 L (137-145) mmol/L Potassium 4.5 (3.6-5.0) mmol/L Chloride 95.1 L (98-107) mmol/L Carbon Dioxide 10 L (22-30) mmol/L Anion Gap 30 mmol/L BUN 20 H (7-17) mg/dL Creatinine 0.6 L (0.7-1.2) mg/dL Estimated GFR > 60 ml/min BUN/Creatinine Ratio 33 % Glucose 530 H* (65-100) mg/dL POC Glucose 404 H (70-105) Calcium 8.7 (8.4-10.2) mg/dL Total Bilirubin 0.50 (0.1-1.2) mg/dL AST 12 (5-40) units/L ALT 11 (7-56) units/L Alkaline Phosphatase 91 (35-129) units/L Total Protein 6.6 (6.3-8.2) g/dL Albumin 3.6 L (3.9-5) g/dL Albumin/Globulin Ratio 1.2 % Lipase 27 (13-60) units/L HCG, Qual (Negative) 07/20/19 07/20/19 Range/Units 04:25 04:25 WBC (4.5-11.0) K/mm3 RBC (3.65-5.03) M/mm3 Hgb (10.1-14.3) gm/dl Hct (30.3-42.9) % MCV (79-97) fl MCH (28-32) pg MCHC (30-34) % RDW (13.2-15.2) % Plt Count (140-440) K/mm3 Lymph % (Auto) (13.4-35.0) % [place] % (Auto) (0.0-7.3) % Eos % (Auto) (0.0-4.3) % Baso % (Auto) (0.0-1.8) % Lymph # (1.2-5.4) K/mm3 [place] # (0.0-0.8) K/mm3 Eos # (0.0-0.4) K/mm3 Baso # (0.0-0.1) K/mm3 Seg Neutrophils % (40.0-70.0) % Seg Neutrophils # (1.8-7.7) K/mm3 VBG pH 7.191 L* (7.320-7.420) Sodium (137-145) mmol/L Potassium (3.6-5.0) mmol/L Chloride (98-107) mmol/L Carbon Dioxide (22-30) mmol/L Anion Gap mmol/L BUN (7-17) mg/dL Creatinine (0.7-1.2) mg/dL Estimated GFR ml/min BUN/Creatinine Ratio % Glucose (65-100) mg/dL POC Glucose (70-105) Calcium (8.4-10.2) mg/dL Total Bilirubin (0.1-1.2) mg/dL AST (5-40) units/L ALT (7-56) units/L Alkaline Phosphatase (35-129) units/L Total Protein (6.3-8.2) g/dL Albumin (3.9-5) g/dL Albumin/Globulin Ratio % Lipase (13-60) units/L HCG, Qual Negative (Negative) - EKG Data -: EKG Interpreted by Me EKG shows normal: sinus rhythm, ST-T waves (no stemi) Rate: normal (94) - Medical Decision Making Patient has DKA and requires ICU admission. Abdomen is soft and nontender. Insulin drip and IV fluids ordered in the ED. Hospitalist informed for admission - Differential Diagnosis DKA, hyperglycemia, medication noncompliant, infection Critical Care Time: Yes Critical care time in (mins) excluding proc time.: 35 Critical care attestation.: If time is entered above; I have spent that time in minutes in the direct care of this critically ill patient, excluding procedure time. ED Disposition Clinical Impression: DKA (diabetic ketoacidoses), Noncompliance with medication regimen Disposition: OP ADMIT IP TO THIS HOSP Is pt being admited?: Yes Condition: Stable Time of Disposition: 05:11 (Dr Gutierrez/hosp)
[2019-07-20 04:39] LABS: Basophils % (Auto) 0.4 % (0.0-1.8); Eosinophils % (Auto) 0.5 % (0.0-4.3); Hematocrit 35.7 % (30.3-42.9); Hemoglobin 11.8 gm/dl (10.1-14.3); Lymphocytes # (Auto) 1.4 K/mm3 (1.2-5.4); Lymphocytes % (Auto) 14.9 % (13.4-35.0); Mean Corpuscular HGB Conc 33 % (30-34); Mean Corpuscular Volume 97 fl (79-97); Monocytes # (Auto) 0.2 K/mm3 (0.0-0.8); Monocytes % (Auto) 2.5 % (0.0-7.3); Platelet Count 234 K/mm3 (140-440); Red Blood Count 3.68 M/mm3 (3.65-5.03); Red Cell Distribution Width 12.8 % (13.2-15.2)
[2019-07-20 05:00] LABS: Alanine Aminotransferase 11 units/L (7-56); Albumin 3.6 g/dL (3.9-5); BUN/Creatinine Ratio 33; Blood Urea Nitrogen 20 mg/dL (7-17); Calcium 8.7 mg/dL (8.4-10.2); Hemolysis Index 5
[2019-07-20] MEDS ORDERED: INSULIN REGULAR, HUMAN 100 UNITS in SODIUM CHLORIDE 0.9% 99 ML IV SCH (05:00)
[2019-07-20 05:43] LABS: Bacteria,Urine 1+ /HPF (Negative); Bilirubin,Urine NEG (Negative); Blood,Urine NEG (Negative); Color,Urine Straw (Yellow); Mucus,Urine FEW /HPF; Protein,Urine <15 mg/dL mg/dL (Negative); Urobilinogen,Urine < 2.0 mg/dL (<2.0)
[2019-07-20] MEDS ORDERED: ONDANSETRON 4 MG/2 ML INJ IV PRN (06:08)
[2019-07-20] MEDS ORDERED: DEXTROSE 50% IN WATER (25GM) 50 ML SYRINGE IV PRN (06:08)
[2019-07-20] MEDS ORDERED: SODIUM CHLORIDE 0.9% 1000 ML 1,000 ML IV SCH ×2 (06:15)
--- NOTE | 2019-07-20 06:17 | History and Physical Report ---
History of Present Illness Date of examination: 07/20/19 Date of admission: 07/20/19 05:28 Chief complaint: Nausea and vomiting Abdominal pain History of present illness: 39-year-old female with known history of diabetes mellitus presenting to the emergency room today complaining of increased thirst, increased urination and increased hunger which has been ongoing for the past 4 to 5 days. Patient admits that she ran out of her NPH insulin by 2 days ago. And she started having nausea vomiting and abdominal pain later today. She denies any fever or chills, no chest pain or shortness of breath. She denies any diarrhea, no hematuria or dysuria. Patient is status post normal vaginal delivery about 3 months ago. Work-up in the emergency room reveals that patient is in diabetic ketoacidosis. She was subsequently started on insulin drip and IV fluid accordingly. Medications and Allergies Allergies Allergy/AdvReac Type Severity Reaction Status Date / Time No Known Allergies Allergy Unverified 11/12/17 05:28 Home Medications Medication Instructions Recorded Confirmed Last Taken Type Insulin NPH, Human [NovoLIN N] 38 unit SUB-Q QAM 07/20/19 07/20/19 Unknown History Insulin Regular, Human [Humulin R] 15 unit SQ AC 07/20/19 07/20/19 Unknown History Active Meds: Active Medications Insulin Human Regular 100 (units/ Sodium Chloride) 100 mls @ 1 mls/hr IV TITR SILVESTRE; Protocol Last Admin: 07/20/19 06:05 Dose: 8 units/hr, 8 mls/hr Documented by: Exam - Constitutional Vitals: Temp Pulse Resp BP Pulse Ox 98.4 F 90 20 90/57 99 07/20/19 03:48 07/20/19 05:00 07/20/19 05:20 07/20/19 05:00 07/20/19 05:20 Results - Labs CBC & Chem 7: 07/20/19 04:25 07/20/19 04:25 Labs: Abnormal lab results 07/20/19 07/20/19 07/20/19 Range/Units 04:12 04:25 04:25 RDW 12.8 L (13.2-15.2) % Seg Neutrophils % 81.7 H (40.0-70.0) % VBG pH (7.320-7.420) Sodium 131 L (137-145) mmol/L Chloride 95.1 L (98-107) mmol/L Carbon Dioxide 10 L (22-30) mmol/L BUN 20 H (7-17) mg/dL Creatinine 0.6 L (0.7-1.2) mg/dL Glucose 530 H* (65-100) mg/dL POC Glucose 404 H (70-105) Albumin 3.6 L (3.9-5) g/dL 07/20/19 Range/Units 04:25 RDW (13.2-15.2) % Seg Neutrophils % (40.0-70.0) % VBG pH 7.191 L* (7.320-7.420) Sodium (137-145) mmol/L Chloride (98-107) mmol/L Carbon Dioxide (22-30) mmol/L BUN (7-17) mg/dL Creatinine (0.7-1.2) mg/dL Glucose (65-100) mg/dL POC Glucose (70-105) Albumin (3.9-5) g/dL Assessment and Plan - Patient Problems (1) DKA (diabetic ketoacidoses) Current Visit: Yes Status: Acute Plan to address problem: Patient has been started on insulin drip and IV fluid accordingly. Will monitor blood glucose closely. (2) Noncompliance with medication regimen Current Visit: Yes Status: Acute Plan to address problem: Patient ran out of his NPH insulin. He has been counseled on compliance with her medications. (3) DVT prophylaxis Current Visit: Yes Status: Acute Plan to address problem: Patient placed on subcutaneous heparin. (4) Full code status Current Visit: Yes Status: Acute
[2019-07-20] MEDS ORDERED: D5W/0.45% NACL/KCL 20 MEQ 20 MEQ/1,000 ML BAG IV SCH (07:00)
[2019-07-20 07:12] LABS: BUN/Creatinine Ratio 33; Blood Urea Nitrogen 20 mg/dL (7-17); Calcium 7.5 mg/dL (8.4-10.2); Hemolysis Index 11
[2019-07-20] MEDS ORDERED: D5W/0.45% NACL/KCL 20 MEQ 20 MEQ/1,000 ML BAG IV ONE (09:04)
[2019-07-20 09:25] LABS: BUN/Creatinine Ratio 32; Blood Urea Nitrogen 19 mg/dL (7-17); Calcium 7.7 mg/dL (8.4-10.2); Hemolysis Index 11
--- NOTE | 2019-07-20 09:30 | Event Note ---
Date: 07/20/19 This is a follow-up from an admission earlier this morning. Patient seen and examined. We will continue to plan as outlined in H&P. Patient reports that she takes 32 units of NPH in the morning and 15 units of regular insulin with each meal. Total visit time equals 35 minutes with greater than 50% spent on coordination of care and counseling
[2019-07-20] MEDS ORDERED: SODIUM CHLORIDE 0.9% 500 ML 500 ML IV ONE (12:00)
[2019-07-20] MEDS: D5W/0.45% NACL/KCL 20 MEQ 20 MEQ/1,000 ML BAG IV SCH ×3 (12:18→23:01)
[2019-07-20] MEDS: HEPARIN 5,000 UNIT/1 ML VIAL SUB-Q SCH ×2 (13:21→22:04)
[2019-07-20 13:46] LABS: BUN/Creatinine Ratio 48; Blood Urea Nitrogen 19 mg/dL (7-17); Calcium 7.3 mg/dL (8.4-10.2); Hemolysis Index 1
--- NOTE | 2019-07-20 15:01 | Consultation ---
History of Present Illness Consult date: 07/20/19 Requesting physician: BHARAT CAMARA Reason for consult: other (DKA) History of present illness: PULMONARY/CCM CONSULT NOTE (Full dictation # [id number]) Please see dictated notes for full details Medications and Allergies Allergies Allergy/AdvReac Type Severity Reaction Status Date / Time No Known Allergies Allergy Unverified 11/12/17 05:28 Home Medications Medication Instructions Recorded Confirmed Last Taken Type Insulin NPH, Human [NovoLIN N] 38 unit SUB-Q QAM #1 vial 07/22/19 Unknown Rx Insulin Regular, Human [Humulin R] 15 unit SQ AC #1 vial 07/22/19 Unknown Rx Active Meds: Active Medications Dextrose (D50w (25gm) Syringe) 0 ml IV Q30MIN PRN; Protocol PRN Reason: Hypoglycemia Heparin Sodium (Porcine) (Heparin) 5,000 unit SUB-Q Q8HR SILVESTRE Last Admin: 07/20/19 13:21 Dose: 5,000 unit Documented by: Insulin Human Regular 100 (units/ Sodium Chloride) 100 mls @ 1 mls/hr IV TITR SILVESTRE; Protocol Last Titration: 07/20/19 14:15 Dose: 1.5 units/hr, 1.5 mls/hr Documented by: Potassium Chloride/Dextrose/Sod Cl (D5w/0.45% Nacl/Kcl 20 Meq) 20 meq in 1,000 mls @ 150 mls/hr IV DIRECT SILVESTRE Last Admin: 07/20/19 12:18 Dose: 150 mls/hr Documented by: Ondansetron HCl (Zofran) 4 mg IV Q8H PRN PRN Reason: Nausea And Vomiting Sodium Chloride (Sodium Chloride Flush Syringe 10 Ml) 10 ml IV BID SILVESTRE Last Admin: 07/20/19 10:30 Dose: 10 ml Documented by: Sodium Chloride (Sodium Chloride Flush Syringe 10 Ml) 10 ml IV PRN PRN PRN Reason: LINE FLUSH Physical Examination Vital signs: Vital Signs Pulse Resp BP Pulse Ox 99 H 12 106/63 100 07/20/19 03:45 07/20/19 03:45 07/20/19 03:45 07/20/19 03:45 Results - Laboratory Findings CBC and BMP: 07/22/19 04:44 07/22/19 04:44 Abnormal lab findings: Abnormal Labs 07/20/19 07/20/19 07/20/19 04:12 04:25 04:25 RDW 12.8 L Seg Neutrophils % 81.7 H VBG pH Sodium 131 L Chloride 95.1 L Carbon Dioxide 10 L BUN 20 H Creatinine 0.6 L Glucose 530 H* POC Glucose 404 H Hemoglobin A1c Calcium Magnesium Albumin 3.6 L 07/20/19 07/20/19 07/20/19 04:25 06:35 06:35 RDW Seg Neutrophils % VBG pH 7.191 L* Sodium Chloride Carbon Dioxide BUN Creatinine Glucose POC Glucose Hemoglobin A1c 10.1 H Calcium Magnesium 1.50 L Albumin 07/20/19 07/20/19 07/20/19 06:35 07:18 08:30 RDW Seg Neutrophils % VBG pH Sodium 136 L Chloride 107.3 H Carbon Dioxide 7 L* BUN 20 H Creatinine 0.6 L Glucose 403 H POC Glucose 320 H 237 H Hemoglobin A1c Calcium 7.5 L Magnesium Albumin 07/20/19 07/20/19 08:46 13:09 RDW Seg Neutrophils % VBG pH Sodium Chloride 108.8 H 114.2 H Carbon Dioxide 8 L* 14 L BUN 19 H 19 H Creatinine 0.6 L 0.4 L Glucose 212 H 118 H POC Glucose Hemoglobin A1c Calcium 7.7 L 7.3 L Magnesium Albumin
[2019-07-20 16:13] LABS: BUN/Creatinine Ratio 27; Blood Urea Nitrogen 16 mg/dL (7-17); Calcium 7.6 mg/dL (8.4-10.2); Hemolysis Index 6
[2019-07-20 18:55] LABS: BUN/Creatinine Ratio 28; Blood Urea Nitrogen 14 mg/dL (7-17); Calcium 7.4 mg/dL (8.4-10.2); Hemolysis Index 4
[2019-07-20] MEDS ORDERED: SODIUM BICARB 8.4% 50 MEQ/50 ML SYRINGE IV ONE (19:30)
[2019-07-20 22:54] LABS: BUN/Creatinine Ratio 37; Blood Urea Nitrogen 11 mg/dL (7-17); Calcium 7.1 mg/dL (8.4-10.2); Hemolysis Index 4
[2019-07-21] MEDS ORDERED: DEXTROSE 50% IN WATER (25GM) 50 ML SYRINGE IV PRN ×2 (02:06→10:00)
[2019-07-21 05:24] LABS: Basophils # (Auto) 0.1 K/mm3 (0.0-0.1); Basophils % (Auto) 0.8 % (0.0-1.8); Eosinophils # (Auto) 0.2 K/mm3 (0.0-0.4); Eosinophils % (Auto) 2.9 % (0.0-4.3); Hematocrit 28.8 % (30.3-42.9); Hemoglobin 9.9 gm/dl (10.1-14.3); Lymphocytes # (Auto) 2.8 K/mm3 (1.2-5.4); Mean Corpuscular HGB Conc 34 % (30-34); Mean Corpuscular Volume 94 fl (79-97); Monocytes # (Auto) 0.4 K/mm3 (0.0-0.8); Monocytes % (Auto) 5.5 % (0.0-7.3); Platelet Count 209 K/mm3 (140-440); Red Blood Count 3.06 M/mm3 (3.65-5.03); Red Cell Distribution Width 12.7 % (13.2-15.2)
[2019-07-21 05:32] LABS: INR 1.15 (0.87-1.13)
[2019-07-21] MEDS: HEPARIN 5,000 UNIT/1 ML VIAL SUB-Q SCH ×3 (05:38→22:06)
[2019-07-21 05:41] LABS: BUN/Creatinine Ratio 20; Blood Urea Nitrogen 8 mg/dL (7-17); Calcium 7.2 mg/dL (8.4-10.2); Hemolysis Index 8
[2019-07-21] MEDS ORDERED: INSULIN LISPRO 100 UNIT/ML SUB-Q SCH (06:00)
[2019-07-21 08:23] LABS: BUN/Creatinine Ratio 12; Blood Urea Nitrogen 6 mg/dL (7-17); Calcium 7.5 mg/dL (8.4-10.2); Hemolysis Index 4
--- NOTE | 2019-07-21 09:52 | Progress Note ---
Assessment and Plan Assessment and plan: DKA. Resolved. Patient will be transition to long-acting insulin with sliding scale. Patient will be transferred to telemetry floor Diabetes mellitus type 1. Continue as above Medical noncompliance. Patient has been counseled with the importance of taking her insulin. DVT prophylaxis. Continue subcutaneous heparin. History Interval history: No new issues overnight. Hospitalist Physical - Constitutional Vitals: Temp Pulse Resp BP Pulse Ox 98 F 68 18 116/72 100 07/21/19 04:00 07/21/19 06:00 07/21/19 06:00 07/21/19 06:00 07/21/19 06:00 General appearance: Present: no acute distress, well-nourished - EENT Eyes: Present: PERRL, EOM intact ENT: hearing intact, clear oral mucosa, dentition normal - Neck Neck: Present: supple, normal ROM - Respiratory Respiratory effort: normal Respiratory: bilateral: CTA - Cardiovascular Rhythm: regular Heart Sounds: Present: S1 & S2. Absent: gallop, rub - Extremities Extremities: no ischemia, No edema, Full ROM - Abdominal General gastrointestinal: soft, non-tender, non-distended, normal bowel sounds - Integumentary Integumentary: Present: clear, warm, dry - Neurologic Neurologic: CNII-XII intact, moves all extremities Results - Labs CBC & Chem 7: 07/21/19 04:40 07/21/19 07:24 Labs: Laboratory Last Values WBC 6.6 K/mm3 (4.5-11.0) 07/21/19 04:40 RBC 3.06 M/mm3 (3.65-5.03) L 07/21/19 04:40 Hgb 9.9 gm/dl (10.1-14.3) L 07/21/19 04:40 Hct 28.8 % (30.3-42.9) L D 07/21/19 04:40 MCV 94 fl (79-97) 07/21/19 04:40 MCH 32 pg (28-32) 07/21/19 04:40 MCHC 34 % (30-34) 07/21/19 04:40 RDW 12.7 % (13.2-15.2) L 07/21/19 04:40 Plt Count 209 K/mm3 (140-440) 07/21/19 04:40 Lymph % (Auto) 42.0 % (13.4-35.0) H 07/21/19 04:40 [place] % (Auto) 5.5 % (0.0-7.3) 07/21/19 04:40 Eos % (Auto) 2.9 % (0.0-4.3) 07/21/19 04:40 Baso % (Auto) 0.8 % (0.0-1.8) 07/21/19 04:40 Lymph # 2.8 K/mm3 (1.2-5.4) 07/21/19 04:40 [place] # 0.4 K/mm3 (0.0-0.8) 07/21/19 04:40 Eos # 0.2 K/mm3 (0.0-0.4) 07/21/19 04:40 Baso # 0.1 K/mm3 (0.0-0.1) 07/21/19 04:40 Seg Neutrophils % 48.8 % (40.0-70.0) 07/21/19 04:40 Seg Neutrophils # 3.2 K/mm3 (1.8-7.7) 07/21/19 04:40 PT 14.9 Sec. (12.2-14.9) 07/21/19 04:40 INR 1.15 (0.87-1.13) H 07/21/19 04:40 APTT 28.0 Sec. (24.2-36.6) 07/21/19 04:40 VBG pH 7.268 (7.320-7.420) L 07/20/19 18:00 Sodium 136 mmol/L (137-145) L 07/21/19 07:24 Potassium 3.2 mmol/L (3.6-5.0) L 07/21/19 07:24 Chloride 105.4 mmol/L (98-107) 07/21/19 07:24 Carbon Dioxide 16 mmol/L (22-30) L 07/21/19 07:24 Anion Gap 18 mmol/L 07/21/19 07:24 BUN 6 mg/dL (7-17) L 07/21/19 07:24 Creatinine 0.5 mg/dL (0.7-1.2) L 07/21/19 07:24 Estimated GFR > 60 ml/min 07/21/19 07:24 BUN/Creatinine Ratio 12 % 07/21/19 07:24 Glucose 202 mg/dL (65-100) H 07/21/19 07:24 POC Glucose 251 (70-105) H 07/21/19 05:46 Hemoglobin A1c 10.1 % (4-6) H 07/20/19 06:35 Calcium 7.5 mg/dL (8.4-10.2) L 07/21/19 07:24 Phosphorus 3.40 mg/dL (2.5-4.5) 07/20/19 06:35 Magnesium 1.50 mg/dL (1.7-2.3) L 07/20/19 06:35 Total Bilirubin 0.50 mg/dL (0.1-1.2) 07/20/19 04:25 AST 12 units/L (5-40) 07/20/19 04:25 ALT 11 units/L (7-56) 07/20/19 04:25 Alkaline Phosphatase 91 units/L (35-129) 07/20/19 04:25 Total Protein 6.6 g/dL (6.3-8.2) 07/20/19 04:25 Albumin 3.6 g/dL (3.9-5) L 07/20/19 04:25 Albumin/Globulin Ratio 1.2 % 07/20/19 04:25 Lipase 27 units/L (13-60) 07/20/19 04:25 HCG, Qual Negative (Negative) 07/20/19 04:25 Urine Color Straw (Yellow) 07/20/19 05:19 Urine Turbidity Clear (Clear) 07/20/19 05:19 Urine pH 5.0 (5.0-7.0) 07/20/19 05:19 Ur Specific [place] 1.023 (1.003-1.030) 07/20/19 05:19 Urine Protein <15 mg/dl mg/dL (Negative) 07/20/19 05:19 Urine Glucose (UA) >=500 mg/dL (Negative) 07/20/19 05:19 Urine Ketones 80 mg/dL (Negative) 07/20/19 05:19 Urine Blood Neg (Negative) 07/20/19 05:19 Urine Nitrite Neg (Negative) 07/20/19 05:19 Urine Bilirubin Neg (Negative) 07/20/19 05:19 Urine Urobilinogen < 2.0 mg/dL (<2.0) 07/20/19 05:19 Ur Leukocyte Esterase Tr (Negative) 07/20/19 05:19 Urine WBC (Auto) 2.0 /HPF (0.0-6.0) 07/20/19 05:19 Urine RBC (Auto) 4.0 /HPF (0.0-6.0) 07/20/19 05:19 U Epithel Cells (Auto) 3.0 /HPF (0-13.0) 07/20/19 05:19 Urine Bacteria (Auto) 1+ /HPF (Negative) 07/20/19 05:19 Urine Mucus Few /HPF 07/20/19 05:19 [place]/IV: Voiding Method Bedpan IV Catheter Type [Left Forearm INT / Saline Lock ] IV Catheter Type [Right INT / Saline Lock Antecubital] Active Medications - Current Medications Current Medications: Generic Name Dose Route Start Last Admin Trade Name Freq PRN Reason Stop Dose Admin Dextrose 0 ml 07/20/19 06:08 D50w (25gm) Syringe IV Q30MIN PRN Hypoglycemia Protocol Dextrose 0 ml 07/21/19 02:06 D50w (25gm) Syringe IV Q30MIN PRN Hypoglycemia Protocol Dextrose 50 ml 07/21/19 09:43 D50w (25gm) Syringe IV Q30MIN PRN Hypoglycemia Protocol Heparin Sodium (Porcine) 5,000 unit 07/20/19 14:00 07/21/19 05:38 Heparin SUB-Q 5,000 unit Q8HR SILVESTRE Administration Sodium Chloride 1,000 mls @ 75 mls/hr 07/21/19 10:00 Nacl 0.9% 1000 Ml IV DIRECT SILVESTRE Insulin Human Isoph/Insulin Regular 30 unit 07/21/19 10:00 Humulin 70/30 SUB-Q 07/21/19 10:01 ONCE ONE Insulin Human Isoph/Insulin Regular 30 unit 07/22/19 10:00 Humulin 70/30 SUB-Q QAM SILVESTRE Insulin Human Lispro 0 unit 07/21/19 06:00 07/21/19 05:38 Humalog SUB-Q 4 unit Q4HR SILVESTRE Administration Protocol Insulin Human Lispro 0 unit 07/21/19 11:30 Humalog SUB-Q ACHS [facility] Protocol Ondansetron HCl 4 mg 07/20/19 06:08 Zofran IV Q8H PRN Nausea And Vomiting Sodium Chloride 10 ml 07/20/19 10:00 07/20/19 22:04 Sodium Chloride Flush Syringe 10 Ml IV 10 ml BID SILVESTRE Administration Sodium Chloride 10 ml 07/20/19 06:08 Sodium Chloride Flush Syringe 10 Ml IV PRN PRN LINE FLUSH Nutrition/Malnutrition Assess - Dietary Evaluation Nutrition/Malnutrition Findings: Nutrition Notes Start: 07/20/19 07:52 Freq: Status: Active Protocol: Document 07/20/19 07:52 LP (Rec: 07/20/19 07:54 LP [email or web address]) Nutrition Notes Need for Assessment generated from: MD Order Initial or Follow up Brief Note Current Diagnosis Diabetes Other Pertinent Diagnosis DKA Labs/Tests A1c 10.1 Subjective/Other Information Consult for diet education. Pt in ED. Nutrition Intervention Follow-Up By: 07/21/19 Additional Comments Follow for diet education
[2019-07-21] MEDS ORDERED: INSULIN NPH/REGULAR 70/30 INJ SUB-Q NR (10:00)
[2019-07-21] MEDS: SODIUM CHLORIDE 0.9% 1000 ML 1,000 ML IV SCH ×2 (10:39→14:17)
[2019-07-21] MEDS: INSULIN LISPRO 100 UNIT/ML SUB-Q SCH ×3 (12:43→21:02)
--- NOTE | 2019-07-21 13:22 | Progress Note ---
Assessment and Plan Diabetic ketoacidosis Hyponatremia Hypokalemia -Continue care per DKA protocol -Change to weight based insulin/ basal bolus insulin -Steady carbohydrate diet -Diabetic education -Counselled on the need fro medical adherence to avoid complications of diabetes -VTE prophylaxis -Replete electrolytes per protocol -Check HBA1C, fasting lipid profile, thyroid function testing -Stable for transfer out of the ICU Subjective Date of service: 07/21/19 Interval history: Follow up: Diabetic ketoacidosis; Hypokalemia; Hyponatremia Seen and examined. Vitals, labs, medications, chart reviewed Denies any chest pain, no shortness of breath, no fevers or chills, no diarrhea or vomiting. Insulin infusion stopped this morning, blood glucose of 200 Objective Vital Signs - 12hr 07/21/19 07/21/19 07/21/19 02:00 03:00 04:00 Temperature 98 F Pulse Rate 78 78 71 Pulse Rate [ From Monitor] Respiratory 13 16 14 Rate Blood Pressure 100/67 102/60 89/50 O2 Sat by Pulse 100 99 100 Oximetry 07/21/19 07/21/19 07/21/19 04:11 05:00 06:00 Temperature Pulse Rate 72 73 68 Pulse Rate [ 70 From Monitor] Respiratory 16 14 18 Rate Blood Pressure 103/66 116/72 O2 Sat by Pulse 100 100 100 Oximetry 07/21/19 07/21/19 07/21/19 07:00 08:00 09:00 Temperature Pulse Rate 70 73 76 Pulse Rate [ 75 From Monitor] Respiratory 14 17 15 Rate Blood Pressure 115/76 94/50 107/73 O2 Sat by Pulse 100 100 100 Oximetry 07/21/19 07/21/19 10:00 11:00 Temperature Pulse Rate 71 79 Pulse Rate [ 75 From Monitor] Respiratory 21 13 Rate Blood Pressure 115/74 98/70 O2 Sat by Pulse 100 100 Oximetry Constitutional: no acute distress, alert Eyes: non-icteric ENT: oropharynx moist Neck: supple, no lymphadenopathy, no JVD Effort: normal Ascultation: Bilateral: clear Cardiovascular: regular rate and rhythm, other (S1,S2, no murmurs) Gastrointestinal: normoactive bowel sounds, soft, non-tender, non-distended Integumentary: normal Extremities: no cyanosis, no edema Neurologic: normal mental status, non-focal exam, pupils equal and round, CN II- XII normal, motor strength normal and Psychiatric: mood appropriate, affect normal CBC and BMP: 07/21/19 04:40 07/21/19 07:24 ABG, PT/INR, D-dimer: PT/INR, D-dimer PT 14.9 Sec. (12.2-14.9) 07/21/19 04:40 INR 1.15 (0.87-1.13) H 07/21/19 04:40 Abnormal lab findings: Abnormal Labs 07/20/19 07/20/19 07/20/19 04:12 04:25 04:25 RBC Hgb Hct RDW 12.8 L Lymph % (Auto) Seg Neutrophils % 81.7 H INR VBG pH Sodium 131 L Potassium Chloride 95.1 L Carbon Dioxide 10 L BUN 20 H Creatinine 0.6 L Glucose 530 H* POC Glucose 404 H Hemoglobin A1c Calcium Magnesium Albumin 3.6 L 07/20/19 07/20/19 07/20/19 04:25 06:35 06:35 RBC Hgb Hct RDW Lymph % (Auto) Seg Neutrophils % INR VBG pH 7.191 L* Sodium Potassium Chloride Carbon Dioxide BUN Creatinine Glucose POC Glucose Hemoglobin A1c 10.1 H Calcium Magnesium 1.50 L Albumin 07/20/19 07/20/19 07/20/19 06:35 07:18 08:30 RBC Hgb Hct RDW Lymph % (Auto) Seg Neutrophils % INR VBG pH Sodium 136 L Potassium Chloride 107.3 H Carbon Dioxide 7 L* BUN 20 H Creatinine 0.6 L Glucose 403 H POC Glucose 320 H 237 H Hemoglobin A1c Calcium 7.5 L Magnesium Albumin 07/20/19 07/20/19 07/20/19 08:46 10:20 11:16 RBC Hgb Hct RDW Lymph % (Auto) Seg Neutrophils % INR VBG pH Sodium Potassium Chloride 108.8 H Carbon Dioxide 8 L* BUN 19 H Creatinine 0.6 L Glucose 212 H POC Glucose 174 H 148 H Hemoglobin A1c Calcium 7.7 L Magnesium Albumin 07/20/19 07/20/19 07/20/19 12:28 13:09 13:28 RBC Hgb Hct RDW Lymph % (Auto) Seg Neutrophils % INR VBG pH Sodium Potassium Chloride 114.2 H Carbon Dioxide 14 L BUN 19 H Creatinine 0.4 L Glucose 118 H POC Glucose 113 H 118 H Hemoglobin A1c Calcium 7.3 L Magnesium Albumin 07/20/19 07/20/19 07/20/19 14:47 15:27 15:33 RBC Hgb Hct RDW Lymph % (Auto) Seg Neutrophils % INR VBG pH Sodium Potassium Chloride 111.0 H Carbon Dioxide 15 L BUN Creatinine 0.6 L Glucose 131 H POC Glucose 135 H 133 H Hemoglobin A1c Calcium 7.6 L Magnesium Albumin 07/20/19 07/20/19 07/20/19 18:00 18:09 18:53 RBC Hgb Hct RDW Lymph % (Auto) Seg Neutrophils % INR VBG pH 7.268 L Sodium 135 L Potassium 3.4 L Chloride 107.5 H Carbon Dioxide 15 L BUN Creatinine 0.5 L Glucose 106 H POC Glucose 123 H Hemoglobin A1c Calcium 7.4 L Magnesium Albumin 07/20/19 07/20/19 07/20/19 19:43 20:59 22:01 RBC Hgb Hct RDW Lymph % (Auto) Seg Neutrophils % INR VBG pH Sodium Potassium Chloride Carbon Dioxide BUN Creatinine Glucose POC Glucose 132 H 137 H 123 H Hemoglobin A1c Calcium Magnesium Albumin 07/20/19 07/20/19 07/20/19 22:25 22:50 23:30 RBC Hgb Hct RDW Lymph % (Auto) Seg Neutrophils % INR VBG pH Sodium Potassium 3.4 L Chloride 111.3 H Carbon Dioxide 17 L BUN Creatinine 0.3 L Glucose 127 H POC Glucose 134 H 138 H Hemoglobin A1c Calcium 7.1 L Magnesium Albumin 07/21/19 07/21/19 07/21/19 00:13 01:10 04:40 RBC 3.06 L Hgb 9.9 L Hct 28.8 L D RDW 12.7 L Lymph % (Auto) 42.0 H Seg Neutrophils % INR VBG pH Sodium Potassium Chloride Carbon Dioxide BUN Creatinine Glucose POC Glucose 119 H 122 H Hemoglobin A1c Calcium Magnesium Albumin 07/21/19 07/21/19 07/21/19 04:40 04:40 05:46 RBC Hgb Hct RDW Lymph % (Auto) Seg Neutrophils % INR 1.15 H VBG pH Sodium Potassium 3.4 L Chloride 109.0 H Carbon Dioxide 17 L BUN Creatinine 0.4 L Glucose 196 H POC Glucose 251 H Hemoglobin A1c Calcium 7.2 L Magnesium Albumin 07/21/19 07/21/19 07/21/19 07:24 10:15 12:27 RBC Hgb Hct RDW Lymph % (Auto) Seg Neutrophils % INR VBG pH Sodium 136 L Potassium 3.2 L Chloride Carbon Dioxide 16 L BUN 6 L Creatinine 0.5 L Glucose 202 H POC Glucose 240 H 275 H Hemoglobin A1c Calcium 7.5 L Magnesium Albumin Allied health notes reviewed: nursing
[2019-07-22] MEDS: SODIUM CHLORIDE 0.9% 1000 ML 1,000 ML IV SCH (02:28)
[2019-07-22 05:07] LABS: Basophils % (Auto) 0.6 % (0.0-1.8); Eosinophils # (Auto) 0.2 K/mm3 (0.0-0.4); Eosinophils % (Auto) 4.2 % (0.0-4.3); Hematocrit 30.3 % (30.3-42.9); Hemoglobin 10.4 gm/dl (10.1-14.3); Lymphocytes # (Auto) 2.5 K/mm3 (1.2-5.4); Mean Corpuscular HGB Conc 34 % (30-34); Mean Corpuscular Volume 94 fl (79-97); Monocytes # (Auto) 0.3 K/mm3 (0.0-0.8); Platelet Count 205 K/mm3 (140-440); Red Blood Count 3.24 M/mm3 (3.65-5.03); Red Cell Distribution Width 12.3 % (13.2-15.2)
[2019-07-22 05:20] LABS: BUN/Creatinine Ratio 20; Blood Urea Nitrogen 8 mg/dL (7-17); Calcium 8.1 mg/dL (8.4-10.2); Hemolysis Index 4
[2019-07-22] MEDS: HEPARIN 5,000 UNIT/1 ML VIAL SUB-Q SCH (05:45)
[2019-07-22] MEDS ORDERED: INSULIN NPH/REGULAR 70/30 INJ SUB-Q SCH (08:00)
[2019-07-22 08:25] VITALS: BP 113/77
[2019-07-22] MEDS: INSULIN LISPRO 100 UNIT/ML SUB-Q SCH ×2 (08:55→12:35)
[2019-07-22] MEDS ORDERED: POTASSIUM CHLORIDE ER 20 MEQ TAB PO NR (10:10)
--- NOTE | 2019-07-22 11:37 | Discharge Summary ---
Providers - Providers Date of Admission: 07/20/19 05:28 Date of discharge: 07/22/19 Attending physician: BRIT ELIZONDO 07/20/19 06:08 Consult to Dietitian/Nutrition [CONS] Routine Physician Instructions: Reason For Exam: Reason for Consult: Diet education 07/20/19 08:11 Consult to Physician [CONS] Urgent Comment: Consulting Provider: AILEEN OVIEDO Physician Instructions: Reason For Exam: critical care management 07/21/19 02:07 Consult to Dietitian/Nutrition [CONS] Routine Physician Instructions: Reason For Exam: Reason for Consult: Diet education Primary care physician: WARRANTY CLERK Hospitalization Condition: Fair Hospital course: Patient is 39-year-old female with known history of diabetes mellitus presented to the emergency room complaining of increased thirst, increased urination and increased hunger which has been ongoing for 4 to 5 days. Patient admits that she ran out of her NPH insulin 2 days previously. And she started having nausea vomiting and abdominal pain later today. She denies any fever or chills, no chest pain or shortness of breath. Patient is status post normal vaginal delivery about 3 months ago. She was seen and evaluated in Emergency Department. Work revealed diabetic ketoacidosis. She was started on Insulin drip, iv fluids and admitted to ICU. Blood glucose improved, she was taken off insulin drip, started on subcutanous Insulin and transferred to Telemetry. Glucose continued to improve, so was discharged home on 07/22/19. She was prescribed same Insulin that was previously given by her Superintendent Production. Total tome spent on discharge, 34 mins Disposition: DC- TO HOME OR SELFCARE - Discharge Diagnoses (1) DKA (diabetic ketoacidoses) Status: Acute (2) SIRS (systemic inflammatory response syndrome) Status: Acute (3) Hypokalemia Status: Acute Core Measure Documentation - Palliative Care Palliative Care/ Comfort Measures: Not Applicable - Core Measures Any of the following diagnoses?: none Exam - Constitutional Vitals: Temp Pulse Resp BP Pulse Ox 97.8 F 74 18 113/77 99 07/22/19 08:05 07/22/19 03:57 07/22/19 08:05 07/22/19 08:05 07/22/19 03:57 Plan Activity: no restrictions Diet: low fat, low cholesterol, low salt, diabetic Plan of Treatment: 1.Follow up with PCP in 1-2 weeks. 2.Follow up with Superintendent [employer] in 1-2 weeks. Follow up with: PRIMARY CARE,MD [Primary Care Provider] - 3-5 Days Prescriptions: Insulin Regular, Human [Humulin R] 15 unit SQ AC #1 vial Insulin NPH, Human [NovoLIN N] 38 unit SUB-Q QAM #1 vial
--- NOTE | 2019-08-14 20:02 | Consultation ---
CONSULTING PHYSICIAN: Dr. Julio C Walton. REASON FOR CONSULTATION: Diabetic ketoacidosis. CHIEF COMPLAINT AND HISTORY OF PRESENT ILLNESS: The patient is a 39-year-old female with past medical history significant for a diagnosis of diabetes, came to the Emergency Room complaining of polydipsia, polyuria and polyphagia, had been going on for about 4-5 days. She ran out of insulin 2 days prior to presentation and apparently was rushing in the use of insulin prior. She developed nausea and vomiting, and abdominal pain on the day of presentation. Denied fevers or chills. Denied any trauma. Denied any open wounds or sores on her body. Denied cough or expectoration. She was evaluated in the Emergency Room and found to be in diabetic ketoacidosis and Intensive Care Unit admission was requested for institution of IV insulin therapy. When I stopped by to see her, she remained on IV insulin drip, I believe it was going about 4 units per hour. She was feeling a little bit better, still looked pretty more steven. When asked about tobacco use or abuse, she denies tobacco use or abuse whatsoever. This really is as much of the history of presentation as I have. PAST MEDICAL HISTORY: As above, diabetes. She is obese. PAST SURGICAL HISTORY: Denies. MEDICATIONS: She was on at the time I stopped by to see were reviewed, pertinent medications include the following: She was on heparin 5000 units subcutaneous q.8 hours, Insulin drip was going as mentioned above. She was on Zofran 4 mg IV q.8 hours p.r.n. nausea and vomiting. ALLERGIES: No known drug allergies. DIET: Obese lady. Denies acute weight loss or gain in the preceding few weeks to months. FAMILY AND SOCIAL HISTORY: Lives in the community. Denies alcohol, tobacco, or illicit drug use or abuse. FAMILY HISTORY: Otherwise, noncontributory. REVIEW OF SYSTEMS: No loss of consciousness. No new onset seizures. No new onset focal weakness. Denies gross hematochezia or melena. Denies gross hematuria or dysuria. No hematemesis. She did have emesis. She denies new onset seizures. Complete 13-system review of systems obtained. Pertinent positives and/or negatives as in body of history above, otherwise noncontributory. PHYSICAL EXAMINATION: VITAL SIGNS: At presentation, she was afebrile, temperature 98.4 degrees Fahrenheit with a pulse of 99, respiratory rate of 23, blood pressure was 106/63, O2 sats 100%, inspired oxygen concentration at that time was not recorded. When I stopped by to see her, O2 sats were 98% that was on room air. GENERAL: She is a young female, normocephalic, obese, talking to me with mildly increased respiratory effort. HEAD, EYES, EARS, NOSE AND THROAT: She was anicteric, no conjunctival erythema. Oropharynx was dry. No palpable lymph nodes in the supraclavicular or submandibular lymph node chains. No gross jugular venous distention, no thyromegaly. LUNGS: Auscultation of both lung pacheco was unremarkable. Lungs are clear bilaterally with good bilateral breath sounds. HEART: Heart sounds 1 and 2 are heard at the time of my evaluation. Regular rate and rhythm without overt rubs or murmurs. ABDOMEN: Soft, full, bowel sounds are positive, mildly tender, no palpable hepatosplenomegaly. EXTREMITIES: Without overt digital clubbing or cyanosis. No pedal edema. Pedal pulses are 2+ bilaterally. NEUROLOGIC: Pupils are equal, round, about 3 mm, reactive to light. Extraocular muscle movements are intact. She moved all 4 extremities spontaneously. Cranial nerves 2-12 were intact. SKIN: Normal turgor within the areas examined without overt cellulitis or rash. PSYCHIATRIC: Her mood and affect were depressed. She did have good insight and judgment. LABORATORY DATA: From my review are as follows: Admission white cell count 9200, hemoglobin 11.8, hematocrit 35.7, platelet count 234. No manual differential. Venous blood gas at presentation showed a pH of 7.19. Serum sodium was 136, potassium 4.8, chloride 107, bicarbonate was 17, BUN was 20, creatinine 0.6, glucose was 403. Hemoglobin A1c 10.1. Liver function test within normal limits. Urinalysis was negative for nitrites. She did have trace leukocyte esterase; however, just 2 white cells per high power field, 1+ bacteremia. No blood cultures, no chest x-rays. ASSESSMENT: 1. Diabetic ketoacidosis. 2. Acute respiratory distress. 3. Severe metabolic acidosis. 4. Hyperkalemia at presentation. 5. Hypomagnesemia. Magnesium was 1.56, obesity. PLAN: We will keep her on the full DKA protocol. Continue IV insulin therapy. Follow electrolytes and adjust IV fluids per the DKA protocol. Better medication compliance has been counseled. I have asked her to talk with the outsole caser if she needs help with getting her medications. Continued tobacco abstinence has been counseled. Supplemental oxygen will be offered on a p.r.n. basis if her O2 sats drop below 90%. She is appropriately on DVT prophylaxis. She will be placed on GI prophylaxis. She will be hemodynamically monitored closely in the Intensive Care Unit, especially when on IV insulin therapy. She will remain n.p.o. for now. Flu and pneumonia vaccination will be addressed per protocol. A GI and DVT prophylaxis will be continued. Thank you very much for the consult. We will follow along and make further recommendations as picture progresses/becomes clearer. JOB# [id number] RUBA/CONNIE
== END 2019-07-22 20:11 | disposition home or self-care (01) | DRG 638 ==
LOC: ED 03:35 → CC1 05:28 → 4A 07-21 13:36
PROVIDERS: ADMIT Internal Medicine Geriatric Medicine; ATTEND Internal Medicine
DX: E10.10 Type 1 diabetes mellitus with ketoacidosis without coma (principal); E87.1 Hypo-osmolality and hyponatremia; R65.10 Systemic inflammatory response syndrome (SIRS) of non-infectious origin without acute organ dysfunction; E87.6 Hypokalemia; Z91.14 Patient's other noncompliance with medication regimen; Z71.89 Other specified counseling
CPT/HCPCS: 36415; 80048; 80053; 81001; 82805; 82962; 83036; 83690; 83735; 84100; 84703; 85025; 85610; 85730; 93005; 93010; G0378; J1644; J1815; J1885; J7030; J7040

== ENCOUNTER 2021-10-10 11:48 | Observation (INO) | payer BC ==
--- NOTE | 2021-10-10 12:09 | Emergency Department Report ---
Chief Complaint: Hyperglycemia Stated Complaint: DIABETIC KETOCIDOSIS Time Seen by Provider: 10/10/21 12:05 - HPI History of Present Illness: hx IDDM, states that she left her insulin at work and could not take it on Sunday and Sunday. started to have some n/v and abdominal pain this am. took 50 units of N this am. - ROS Review of Systems: c/o abdominal pain with n/v. - Exam Physical Exam: alert and oriented. MSE screening note: Focused history and physical exam performed. Due to findings the following was ordered: poc ACCU check, cmp, cbc, ua, gelacio PH. Patient will be seen and evaluated by provider when she gets a room. ED Disposition for MSE Condition: Stable
[2021-10-10] MEDS ORDERED: SODIUM CHLORIDE 0.9% 1000 ML 1,000 ML IV ONE ×3 (12:10→16:21)
[2021-10-10 13:23] LABS: Hematocrit 39.9 % (30.3-42.9); Hemoglobin 12.6 gm/dl (10.1-14.3); Mean Corpuscular HGB Conc 32 % (30-34); Mean Corpuscular Volume 95 fl (79-97); Platelet Count 295 K/mm3 (140-440); Red Blood Count 4.19 M/mm3 (3.65-5.03); Red Cell Distribution Width 14.7 % (13.2-15.2)
[2021-10-10 13:31] LABS: Alanine Aminotransferase 18 units/L (7-56); Albumin 4.7 g/dL (3.9-5); BUN/Creatinine Ratio 29; Blood Urea Nitrogen 26 mg/dL (7-17); Calcium 9.4 mg/dL (8.4-10.2); Hemolysis Index 5
[2021-10-10] MEDS ORDERED: SODIUM CHLORIDE 0.9% 1000 ML IV SOLN IV ONE (15:25)
[2021-10-10] MEDS ORDERED: INSULIN REGULAR, HUMAN 100 UNITS/1 ML IV ONE (15:26)
[2021-10-10] MEDS ORDERED: DEXTROSE 50% IN WATER (25GM) 50 ML SYRINGE IV PRN (15:26)
[2021-10-10] MEDS ORDERED: INSULIN REGULAR, HUMAN 100 UNITS in SODIUM CHLORIDE 0.9% 99 ML IV SCH (16:00)
[2021-10-10] MEDS ORDERED: cefTRIAXone/NS 1 GM/50 ML 1 GM/50 ML BAG IV ONE (16:02)
[2021-10-10 16:28] LABS: BUN/Creatinine Ratio 30; Blood Urea Nitrogen 24 mg/dL (7-17); Calcium 8.4 mg/dL (8.4-10.2); Hemolysis Index 18
--- NOTE | 2021-10-10 16:30 | Emergency Department Report ---
ED General Adult HPI - General Chief complaint: Hyperglycemia Stated complaint: DIABETIC KETOCIDOSIS Time Seen by Provider: 10/10/21 12:05 Source: patient Mode of arrival: Ambulatory Limitations: No Limitations - History of Present Illness Initial comments: Patient is a 41-year-old female history of type 1 diabetes who presents to the emergency department with complaints of elevated blood sugars. Per patient she left her medications at work on Sunday. She has not taken insulin for the past 2 days. She has had nausea today. Patient denies any recent fevers chills or coughing. She denies any abdominal pain. She states she has not recently been ill. - Related Data Previous Rx's Medication Instructions Recorded Last Taken Type Insulin NPH, Human [NovoLIN N] 38 unit SUB-Q QAM #1 vial 07/22/19 Unknown Rx Insulin Regular, Human [Humulin R] 15 unit SQ AC #1 vial 07/22/19 Unknown Rx Allergies Allergy/AdvReac Type Severity Reaction Status Date / Time No Known Allergies Allergy Unverified 11/12/17 05:28 ED Review of Systems ROS: Stated complaint: DIABETIC KETOCIDOSIS Other details as noted in HPI Constitutional: denies: chills, fever Eyes: denies: eye pain, eye discharge, vision change ENT: denies: ear pain, throat pain Respiratory: denies: cough, shortness of breath, wheezing Cardiovascular: denies: chest pain, palpitations Endocrine: no symptoms reported Gastrointestinal: nausea. denies: abdominal pain, diarrhea Genitourinary: denies: urgency, dysuria, discharge Musculoskeletal: denies: back pain, joint swelling, arthralgia Skin: denies: rash, lesions Neurological: denies: headache, weakness, paresthesias Psychiatric: denies: anxiety, depression Hematological/Lymphatic: denies: easy bleeding, easy bruising ED Past Medical Hx - Past Medical History Hx Diabetes: Yes Hx Asthma: No Hx COPD: No - Social History Smoking Status: Never Smoker - Medications Home Medications: Home Medications Medication Instructions Recorded Confirmed Last Taken Type Insulin NPH, Human [NovoLIN N] 38 unit SUB-Q QAM #1 vial 07/22/19 Unknown Rx Insulin Regular, Human [Humulin R] 15 unit SQ AC #1 vial 07/22/19 Unknown Rx ED Physical Exam - General Limitations: No Limitations General appearance: alert, in no apparent distress - Head Head exam: Present: atraumatic, normocephalic - Eye Eye exam: Present: normal appearance - ENT ENT exam: Present: mucous membranes moist - Neck Neck exam: Present: normal inspection - Respiratory Respiratory exam: Present: normal lung sounds bilaterally. Absent: respiratory distress - Cardiovascular Cardiovascular Exam: Present: regular rate, normal rhythm. Absent: systolic murmur, diastolic murmur, rubs, gallop - GI/Abdominal GI/Abdominal exam: Present: soft, normal bowel sounds - Extremities Exam Extremities exam: Present: normal inspection - Back Exam Back exam: Present: normal inspection - Neurological Exam Neurological exam: Present: alert, oriented X3 - Psychiatric Psychiatric exam: Present: normal affect, normal mood - Skin Skin exam: Present: warm, dry, intact, normal color. Absent: rash ED Course Vital Signs 10/10/21 10/10/21 10/10/21 14:38 14:40 14:45 Pulse Rate 110 H 107 H 108 H Respiratory 18 23 24 Rate Blood Pressure 96/66 106/62 106/62 O2 Sat by Pulse 100 100 100 Oximetry 10/10/21 10/10/21 10/10/21 15:01 15:15 15:31 Pulse Rate 125 H 117 H 112 H Respiratory 26 H 25 H 22 Rate Blood Pressure 96/66 112/67 93/57 O2 Sat by Pulse 100 100 100 Oximetry 10/10/21 10/10/21 10/10/21 15:45 16:01 16:15 Pulse Rate 110 H 114 H 111 H Respiratory 20 25 H 22 Rate Blood Pressure 93/57 93/57 114/57 O2 Sat by Pulse 100 100 100 Oximetry 10/10/21 10/10/21 10/10/21 16:31 16:45 16:52 Pulse Rate 113 H 113 H Respiratory 25 H 26 H 24 Rate Blood Pressure 104/61 113/61 O2 Sat by Pulse 100 100 100 Oximetry 10/10/21 10/10/21 10/10/21 17:01 17:15 17:31 Pulse Rate 122 H 121 H 120 H Respiratory 29 H 25 H 27 H Rate Blood Pressure 108/61 108/61 88/58 O2 Sat by Pulse 100 100 100 Oximetry 10/10/21 10/10/21 10/10/21 17:45 18:01 18:15 Pulse Rate 127 H 129 H 118 H Respiratory 29 H 31 H 26 H Rate Blood Pressure 88/58 107/64 107/64 O2 Sat by Pulse 99 100 100 Oximetry 10/10/21 10/10/21 18:31 18:45 Pulse Rate 120 H 127 H Respiratory 26 H 29 H Rate Blood Pressure 95/62 95/62 O2 Sat by Pulse 100 Oximetry ED Medical Decision Making - Lab Data Result diagrams: 10/10/21 12:33 10/10/21 15:34 - Radiology Data Radiology results: report reviewed, image reviewed - Medical Decision Making Patient is a 41-year-old female history of type 1 diabetes presenting to the emergency department after not taking her medications for the past 2 days. Patient presents in DKA on labs that were obtained in triage. Given this plan to continue IV fluid rehydration with multiple IV fluid boluses. I have also ordered an insulin bolus of 0.1 units/kg. Patient also to be started on an insulin drip and I have consulted the felt cutting machine operator for patient as she will be admitted to the ICU under the hospitalist. Patient has elevated white count of 18 but I do think this is likely hemoconcentration as patient reports no recent fever and does note medication noncompliance as the cause to her DKA. We will continue to monitor patient closely prior to ICU admission. Critical Care Time: Yes Critical care time in (mins) excluding proc time.: 40 Critical care attestation.: If time is entered above; I have spent that time in minutes in the direct care of this critically ill patient, excluding procedure time. ED Disposition Clinical Impression: DKA (diabetic ketoacidoses) Disposition: ADMITTED INPATIENT Is pt being admited?: Yes Does the pt Need Aspirin: No Condition: Critical Instructions: Diabetic Ketoacidosis (ED)
--- NOTE | 2021-10-10 16:37 | XRay Report ---
CHEST 1 VIEW 10/10/2021 3:27 PM INDICATION / CLINICAL INFORMATION: eval for pneumonia; sepsis. COMPARISON: 11/12/2017 FINDINGS: SUPPORT DEVICES: None. HEART / MEDIASTINUM: No significant abnormality. LUNGS / PLEURA: No significant pulmonary or pleural abnormality. No pneumothorax. ADDITIONAL FINDINGS: No significant additional findings. IMPRESSION: 1. No acute findings. Signer Name: Ramiro Vincent DO Signed: 10/10/2021 4:32 PM Workstation Name: [id number]
[2021-10-10] MEDS ORDERED: ACETAMINOPHEN 325 MG TAB PO PRN (18:14)
[2021-10-10] MEDS ORDERED: ONDANSETRON 4 MG/2 ML INJ IV PRN (18:14)
[2021-10-10] MEDS ORDERED: METOCLOPRAMIDE 10 MG/2 ML INJ IV PRN (18:14)
[2021-10-10] MEDS ORDERED: MORPHINE 2 MG/1 ML INJ IV PRN (18:14)
[2021-10-10] MEDS ORDERED: oxyCODONE /ACETAMINOPHEN 5-325MG TAB PO PRN (18:14)
--- NOTE | 2021-10-10 18:27 | History and Physical Report ---
History of Present Illness Date of examination: 10/10/21 Date of admission: 10/10/2021 Chief complaint: Patient comes in for nausea and generalized weakness and high blood glucose levels History of present illness: 41-year-old -[place] female with history of doubtful type 1 diabetes from age 24 and insulin-dependent comes in for nausea and generalized weakness. Her blood glucose levels have been high patient has not been taking insulin for the last 48 to 60 hours. She left her medications at work on Sunday and did not have access to insulin. Did not take insulin for the last 48 to 60 hours. ED course blood glucose levels have been very high and metabolic acidosis present - Past Medical History --Diabetes: Yes -past surgical history --None - Social History --Never Smoker -FH Htn - Medications --Home Medications: Home Medications Medication Instructions Recorded Confirmed Last Taken Type Insulin NPH, Human [NovoLIN N] 38 unit SUB-Q QAM #1 vial 07/22/19 Unknown Rx Insulin Regular, Human [Humulin R] 15 unit SQ AC #1 vial 07/22/19 Unknown Rx Review of Systems ROS: Stated complaint: DIABETIC KETOCIDOSIS Other details as noted in HPI Constitutional: denies: chills, fever Eyes: denies: eye pain, eye discharge, vision change ENT: denies: ear pain, throat pain Respiratory: denies: cough, shortness of breath, wheezing Cardiovascular: denies: chest pain, palpitations Endocrine: no symptoms reported Gastrointestinal: nausea. denies: abdominal pain, diarrhea Genitourinary: denies: urgency, dysuria, discharge Musculoskeletal: denies: back pain, joint swelling, arthralgia Skin: denies: rash, lesions Neurological: denies: headache, weakness, paresthesias Psychiatric: denies: anxiety, depression Hematological/Lymphatic: denies: easy bleeding, easy bruising Medications and Allergies Allergies Allergy/AdvReac Type Severity Reaction Status Date / Time No Known Allergies Allergy Unverified 11/12/17 05:28 Home Medications Medication Instructions Recorded Confirmed Last Taken Type Insulin NPH, Human [NovoLIN N] 38 unit SUB-Q QAM #1 vial 07/22/19 Unknown Rx Insulin Regular, Human [Humulin R] 15 unit SQ AC #1 vial 07/22/19 Unknown Rx Active Meds: Active Medications Dextrose (Dextrose 50% In Water (25gm) 50 Ml Syringe) 0 ml IV Q30MIN PRN; Protocol PRN Reason: Hypoglycemia Insulin Human Regular 100 (units/ Sodium Chloride) 100 mls @ 1 mls/hr IV TITR SILVESTRE; Protocol Exam - Constitutional Vitals: Temp Pulse Resp BP Pulse Ox 129 H 31 H 107/64 100 10/10/21 18:01 10/10/21 18:01 10/10/21 18:01 10/10/21 18:01 General appearance: Present: no acute distress, well-nourished - EENT Eyes: Present: PERRL ENT: hearing intact, clear oral mucosa, other - Neck Neck: Present: supple, normal ROM - Respiratory Respiratory effort: normal Respiratory: bilateral: CTA - Cardiovascular Heart rate: 78 Rhythm: regular Heart Sounds: Present: S1 & S2. Absent: rub, click - Extremities Extremities: pulses symmetrical, No edema Peripheral Pulses: within normal limits - Abdominal General gastrointestinal: Present: soft, non-tender, non-distended, normal bowel sounds Female genitourinary: Present: normal - Rectal Rectal Exam: deferred - Integumentary Integumentary: Present: clear, warm, dry - Musculoskeletal Musculoskeletal: gait normal, strength equal bilaterally - Psychiatric Psychiatric: appropriate mood/affect, intact judgment & insight - Neurologic Neurologic: CNII-XII intact, moves all extremities - Allied Health Allied health notes reviewed: nursing, case management Results - Labs CBC & Chem 7: 10/10/21 12:33 10/11/21 04:54 Labs: Laboratory Last Values WBC 18.6 K/mm3 (4.5-11.0) H 10/10/21 12:33 RBC 4.19 M/mm3 (3.65-5.03) 10/10/21 12:33 Hgb 12.6 gm/dl (10.1-14.3) 10/10/21 12:33 Hct 39.9 % (30.3-42.9) 10/10/21 12:33 MCV 95 fl (79-97) 10/10/21 12:33 MCH 30 pg (28-32) 10/10/21 12:33 MCHC 32 % (30-34) 10/10/21 12:33 RDW 14.7 % (13.2-15.2) 10/10/21 12:33 Plt Count 295 K/mm3 (140-440) 10/10/21 12:33 VBG pH 7.095 (7.320-7.420) L* 10/10/21 12:33 Sodium 134 mmol/L (137-145) L 10/10/21 15:34 Potassium 5.0 mmol/L (3.6-5.0) 10/10/21 15:34 Chloride 94.6 mmol/L (98-107) L 10/10/21 15:34 Carbon Dioxide 6 mmol/L (22-30) L* 10/10/21 15:34 Anion Gap 38 mmol/L 10/10/21 15:34 BUN 24 mg/dL (7-17) H 10/10/21 15:34 Creatinine 0.8 mg/dL (0.6-1.2) 10/10/21 15:34 Estimated GFR > 60 ml/min 10/10/21 15:34 BUN/Creatinine Ratio 30 % 10/10/21 15:34 Glucose 519 mg/dL (65-100) H* 10/10/21 15:34 POC Glucose 500 mg/dL (70-105) H 10/10/21 12:08 Lactic Acid 3.60 mmol/L (0.7-2.0) H* 10/10/21 15:34 Calcium 8.4 mg/dL (8.4-10.2) 10/10/21 15:34 Phosphorus 6.40 mg/dL (2.5-4.5) H 10/10/21 15:34 Magnesium 2.10 mg/dL (1.7-2.3) 10/10/21 15:34 Total Bilirubin 0.20 mg/dL (0.1-1.2) 10/10/21 12:33 AST 20 units/L (5-40) 10/10/21 12:33 ALT 18 units/L (7-56) 10/10/21 12:33 Alkaline Phosphatase 150 units/L (35-129) H 10/10/21 12:33 Total Protein 7.4 g/dL (6.3-8.2) 10/10/21 12:33 Albumin 4.7 g/dL (3.9-5) 10/10/21 12:33 Albumin/Globulin Ratio 1.7 % 10/10/21 12:33 Short CBC 10/10/21 Range/Units 12:33 WBC 18.6 H (4.5-11.0) K/mm3 Hgb 12.6 (10.1-14.3) gm/dl Hct 39.9 (30.3-42.9) % Plt Count 295 (140-440) K/mm3 BMP 10/10/21 10/10/21 10/10/21 12:33 15:34 19:32 Sodium 132 L 134 L 142 D Potassium 5.2 H 5.0 4.5 Chloride 88.4 L 94.6 L 112.1 H Carbon Dioxide 10 L 6 L* 5 L* BUN 26 H 24 H 17 Creatinine 0.9 0.8 0.7 Glucose 534 H* 519 H* 273 H Calcium 9.4 8.4 7.3 L 10/11/21 04:54 Sodium 140 Potassium 3.8 Chloride 115.4 H Carbon Dioxide 14 L D BUN 13 Creatinine 0.6 Glucose 174 H Calcium 7.1 L Liver Function 10/10/21 Range/Units 12:33 Total Bilirubin 0.20 (0.1-1.2) mg/dL AST 20 (5-40) units/L ALT 18 (7-56) units/L Alkaline Phosphatase 150 H (35-129) units/L Albumin 4.7 (3.9-5) g/dL Urine 10/10/21 Range/Units 18:06 Urine Color Red (Yellow) Urine pH 6.0 (5.0-7.0) Ur Specific [place] 1.016 (1.003-1.030) Urine Protein 100 mg/dl (Negative) mg/dL Urine Glucose (UA) >=500 (Negative) mg/dL - Imaging and Cardiology Imaging and Cardiology: Chest x-ray No acute findings Assessment and Plan Assessment and plan: Critical care statement The high probability OF a clinically significant sudden or life-threatening deterioration of the cardiorespiratory system and endocrine system required my full and direct attention, intervention and postoperative management. The aggregate critical care time was 35 minutes .The time is in addition to time spent performing reported procedures but includes the followin: Data review and interpretation 2: Patient assessment and monitoring of vital signs 3: Documentation 4:: Medication orders and management Advance Directives: Yes (Full code) VTE prophylaxis?: Chemical Plan of care discussed with patient/family: Yes - Patient Problems (1) DKA (diabetic ketoacidoses) Current Visit: No Status: Acute Qualifiers: Diabetes mellitus type: type 1 Plan to address problem: DKA protocol IV insulin drip IV fluids Electrolyte correction Regional Guide consult Counseled about compliance (2) Metabolic acidosis Current Visit: Yes Status: Acute Plan to address problem: Anion gap of 38 IV bicarbonate as necessary (3) Noncompliance with medication regimen Current Visit: No Status: Acute Plan to address problem: Counseled about compliance (4) UTI (urinary tract infection) Current Visit: Yes Status: Acute Qualifiers: Urinary tract infection type: acute cystitis Plan to address problem: mild Macrobid (5) DVT prophylaxis Current Visit: No Status: Acute Plan to address problem: On anticoagulation and GI prophylaxis (6) Advance care planning Current Visit: Yes Status: Acute Plan to address problem: Disease education conducted, care plan discussed, diagnosis discussed, prognosis discussed. Patient is full code. Patient acknowledged understanding and agreement with care plan. +30 minutes.
[2021-10-10 18:37] LABS: Bilirubin,Urine NEG (Negative); Blood,Urine LG (Negative); Color,Urine Red (Yellow); Urobilinogen,Urine < 2.0 mg/dL (<2.0)
[2021-10-10 18:47] LABS: Bacteria,Urine 1+ /HPF (Negative); Mucus,Urine FEW /HPF
[2021-10-10 18:50] LABS: RBC,Urine > 182.0 /HPF (0.0-6.0)
[2021-10-10] MEDS ORDERED: D5W/0.45% NACL/KCL 20 MEQ 20 MEQ/1,000 ML BAG IV SCH (19:00)
[2021-10-10 20:30] LABS: Blood Urea Nitrogen 17 mg/dL (7-17); Calcium 7.3 mg/dL (8.4-10.2); Hemolysis Index 7
[2021-10-10 20:53] LABS: BUN/Creatinine Ratio 24
[2021-10-10] MEDS ORDERED: FAMOTIDINE 20 MG/2 ML INJ IV SCH (22:00)
[2021-10-10] MEDS: HEPARIN 5,000 UNIT/1 ML VIAL SUB-Q SCH (22:02)
[2021-10-11 05:32] LABS: Blood Urea Nitrogen 13 mg/dL (7-17); Calcium 7.1 mg/dL (8.4-10.2); Hemolysis Index 2
[2021-10-11 05:45] LABS: BUN/Creatinine Ratio 22
[2021-10-11] MEDS ORDERED: FAMOTIDINE 20 MG TAB PO SCH (10:00)
[2021-10-11] MEDS ORDERED: INSULIN NPH, HUMAN 100 UNIT/1 ML SUB-Q SCH (10:00)
[2021-10-11] MEDS: HEPARIN 5,000 UNIT/1 ML VIAL SUB-Q SCH (10:26)
[2021-10-11 10:46] VITALS: BP 94/63
[2021-10-11 10:51] LABS: Blood Urea Nitrogen 12 mg/dL (7-17); Calcium 7.1 mg/dL (8.4-10.2); Hemolysis Index 1
[2021-10-11 10:59] LABS: BUN/Creatinine Ratio 24
--- NOTE | 2021-10-11 10:59 | Consultation ---
History of Present Illness - Reason for Consult Consult date: 10/11/21 dka - History of Present Illness Patient is a 41-year-old female history of type 1 diabetes who presented to the emergency department with complaints of elevated blood sugars. Per patient she left her medications at work on Sunday. She has not taken insulin for the past 3 days. She has had nausea and generalized weakness. Patient denies any recent fevers chills or coughing. She denies any abdominal pain. She states she has not recently been ill. In the ED started on IVFs and insulin drip. This AM, anion gap has closed and patient is feeling better. Past History Past Medical History: diabetes Past Surgical History: No surgical history Social history: no significant social history Medications and Allergies Allergies Allergy/AdvReac Type Severity Reaction Status Date / Time No Known Allergies Allergy Unverified 11/12/17 05:28 Home Medications Medication Instructions Recorded Confirmed Last Taken Type Insulin NPH, Human [NovoLIN N] 38 unit SUB-Q QAM #1 vial 07/22/19 Unknown Rx Insulin Regular, Human [Humulin R] 15 unit SQ AC #1 vial 07/22/19 Unknown Rx Active Meds: Active Medications Acetaminophen (Acetaminophen 325 Mg Tab) 650 mg PO Q4H PRN PRN Reason: Pain MILD(1-3)/Fever >100.5/BREAUX Famotidine (Famotidine 20 Mg Tab) 20 mg PO BID [facility] Last Admin: 10/11/21 10:26 Dose: 20 mg Heparin Sodium (Porcine) (Heparin 5,000 Unit/1 Ml Vial) 5,000 unit SUB-Q Q12HR [facility] Last Admin: 10/11/21 10:26 Dose: 5,000 unit Potassium Chloride/Dextrose/Sod Cl (D5w/0.45% Nacl/Kcl 20 Meq) 20 meq in 1,000 mls @ 125 mls/hr IV DIRECT [facility] Last Admin: 10/10/21 20:17 Dose: 125 mls/hr Insulin Human NPH (Insulin Nph, Human 100 Unit/1 Ml) 38 unit SUB-Q QAM [facility] Last Admin: 10/11/21 10:27 Dose: 38 unit Metoclopramide HCl (Metoclopramide 10 Mg/2 Ml Inj) 10 mg IV Q6H PRN PRN Reason: Nausea And Vomiting Morphine Sulfate (Morphine 2 Mg/1 Ml Inj) 2 mg IV Q4H PRN PRN Reason: Pain, Moderate (4-6) Ondansetron HCl (Ondansetron 4 Mg/2 Ml Inj) 4 mg IV Q3H PRN PRN Reason: Nausea And Vomiting Oxycodone/Acetaminophen (Oxycodone /Acetaminophen 5-325mg Tab) 1 tab PO Q6H PRN PRN Reason: Pain, Moderate (4-6) Sodium Chloride (Sodium Chloride 0.9% 10 Ml Flush Syringe) 10 ml IV BID SILVESTRE Last Admin: 10/11/21 10:26 Dose: 10 ml Sodium Chloride (Sodium Chloride 0.9% 10 Ml Flush Syringe) 10 ml IV PRN PRN PRN Reason: LINE FLUSH Review of Systems All systems: negative Exam - Constitutional Vitals: Temp Pulse Resp BP Pulse Ox 98.6 F 89 23 94/63 100 10/10/21 20:29 10/11/21 10:31 10/11/21 10:31 10/11/21 10:31 10/11/21 10:31 Results - Labs CBC & Chem 7: 10/10/21 12:33 10/11/21 04:54 Labs: Abnormal lab results 10/10/21 10/10/21 10/10/21 Range/Units 12:08 12:33 12:33 WBC 18.6 H (4.5-11.0) K/mm3 VBG pH (7.320-7.420) Sodium 132 L (137-145) mmol/L Potassium 5.2 H (3.6-5.0) mmol/L Chloride 88.4 L (98-107) mmol/L Carbon Dioxide 10 L (22-30) mmol/L BUN 26 H (7-17) mg/dL Glucose 534 H* (65-100) mg/dL POC Glucose 500 H (70-105) mg/dL Hemoglobin A1c (4-6) % Lactic Acid (0.7-2.0) mmol/L Calcium (8.4-10.2) mg/dL Phosphorus (2.5-4.5) mg/dL Alkaline Phosphatase 150 H (35-129) units/L Urine WBC (Auto) (0.0-6.0) /HPF 10/10/21 10/10/21 10/10/21 Range/Units 12:33 15:34 15:34 WBC (4.5-11.0) K/mm3 VBG pH 7.095 L* (7.320-7.420) Sodium 134 L (137-145) mmol/L Potassium (3.6-5.0) mmol/L Chloride 94.6 L (98-107) mmol/L Carbon Dioxide 6 L* (22-30) mmol/L BUN 24 H (7-17) mg/dL Glucose 519 H* (65-100) mg/dL POC Glucose (70-105) mg/dL Hemoglobin A1c (4-6) % Lactic Acid 3.60 H* (0.7-2.0) mmol/L Calcium (8.4-10.2) mg/dL Phosphorus 6.40 H (2.5-4.5) mg/dL Alkaline Phosphatase (35-129) units/L Urine WBC (Auto) (0.0-6.0) /HPF 10/10/21 10/10/21 10/10/21 Range/Units 18:06 19:32 20:08 WBC (4.5-11.0) K/mm3 VBG pH (7.320-7.420) Sodium (137-145) mmol/L Potassium (3.6-5.0) mmol/L Chloride 112.1 H (98-107) mmol/L Carbon Dioxide 5 L* (22-30) mmol/L BUN (7-17) mg/dL Glucose 273 H (65-100) mg/dL POC Glucose 213 H (70-105) mg/dL Hemoglobin A1c (4-6) % Lactic Acid (0.7-2.0) mmol/L Calcium 7.3 L (8.4-10.2) mg/dL Phosphorus (2.5-4.5) mg/dL Alkaline Phosphatase (35-129) units/L Urine WBC (Auto) 12.0 H (0.0-6.0) /HPF 10/10/21 10/10/21 10/10/21 Range/Units 21:25 22:27 23:32 WBC (4.5-11.0) K/mm3 VBG pH (7.320-7.420) Sodium (137-145) mmol/L Potassium (3.6-5.0) mmol/L Chloride (98-107) mmol/L Carbon Dioxide (22-30) mmol/L BUN (7-17) mg/dL Glucose (65-100) mg/dL POC Glucose 194 H 179 H 170 H (70-105) mg/dL Hemoglobin A1c (4-6) % Lactic Acid (0.7-2.0) mmol/L Calcium (8.4-10.2) mg/dL Phosphorus (2.5-4.5) mg/dL Alkaline Phosphatase (35-129) units/L Urine WBC (Auto) (0.0-6.0) /[facility] 10/11/21 10/11/21 10/11/21 Range/Units 00:40 01:48 02:52 WBC (4.5-11.0) K/mm3 VBG pH (7.320-7.420) Sodium (137-145) mmol/L Potassium (3.6-5.0) mmol/L Chloride (98-107) mmol/L Carbon Dioxide (22-30) mmol/L BUN (7-17) mg/dL Glucose (65-100) mg/dL POC Glucose 161 H 202 H 194 H (70-105) mg/dL Hemoglobin A1c (4-6) % Lactic Acid (0.7-2.0) mmol/L Calcium (8.4-10.2) mg/dL Phosphorus (2.5-4.5) mg/dL Alkaline Phosphatase (35-129) units/L Urine WBC (Auto) (0.0-6.0) /[facility] 10/11/21 10/11/21 10/11/21 Range/Units 04:39 04:54 04:54 WBC (4.5-11.0) K/mm3 VBG pH (7.320-7.420) Sodium (137-145) mmol/L Potassium (3.6-5.0) mmol/L Chloride 115.4 H (98-107) mmol/L Carbon Dioxide 14 L D (22-30) mmol/L BUN (7-17) mg/dL Glucose 174 H (65-100) mg/dL POC Glucose 166 H (70-105) mg/dL Hemoglobin A1c 11.9 H (4-6) % Lactic Acid (0.7-2.0) mmol/L Calcium 7.1 L (8.4-10.2) mg/dL Phosphorus (2.5-4.5) mg/dL Alkaline Phosphatase (35-129) units/L Urine WBC (Auto) (0.0-6.0) /HPF 10/11/21 10/11/21 10/11/21 Range/Units 06:32 08:45 10:41 WBC (4.5-11.0) K/mm3 VBG pH (7.320-7.420) Sodium (137-145) mmol/L Potassium (3.6-5.0) mmol/L Chloride (98-107) mmol/L Carbon Dioxide (22-30) mmol/L BUN (7-17) mg/dL Glucose (65-100) mg/dL POC Glucose 166 H 142 H 117 H (70-105) mg/dL Hemoglobin A1c (4-6) % Lactic Acid (0.7-2.0) mmol/L Calcium (8.4-10.2) mg/dL Phosphorus (2.5-4.5) mg/dL Alkaline Phosphatase (35-129) units/L Urine WBC (Auto) (0.0-6.0) /HPF - Imaging and Cardiology Chest x-ray: image reviewed (clear, no evidence of acute disease.) Assessment and Plan 41 y/o female with DKA 1. Gap has closed 2. Patient needs to resume her insulin, if she cannot reach her supply, needs scripts for those 3. Critical care will sign off. Call if questions.
--- NOTE | 2021-10-11 12:35 | Discharge Summary ---
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 Her blood glucose levels have been high patient has not been taking insulin for the last 48 to 60 hours. She left her medications at work on Sunday and did not have access to insulin. Did not take insulin for the last 48 to 60 hours. ED course blood glucose levels have been very high and metabolic acidosis present Hospital Course: Patient was admitted for diabetic ketoacidosis. She states that she had missed her weekend insulin doses due to leaving her insulin at work and did not want to have to drive back to work to go get her insulin. Blood sugar on admission was 534. Patient had a bicarb of 5, anion gap of 24. Severe metabolic acidosis likely due to underlying diabetic ketoacidosis. Insulin drip was initiated via the DKA protocol. Blood sugars were rapidly corrected and were last recorded to be 117. Patient was initiated on Lantus and started on diabetic diet. She was advised to resume her home insulin dosages and counseled on not missing her daily doses. Hemoglobin A1c was 11.9. She was counseled on staying compliant on her insulins so that she can achieve superior glycemic control. She was advised to have this discussion with her primary care doctor and possibly establish with an corporate specialist. She was advised to follow-up with her primary care doctor in 3 to 5 days regarding this hospitalization. 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 Counseled about compliance (2) Metabolic acidosis Current Visit: Yes Status: Acute Plan to address problem: Anion gap of 38 IV bicarbonate as necessary (3) Noncompliance with medication regimen Current Visit: No Status: Acute Plan to address problem: Counseled about compliance (4) UTI (urinary tract infection) Current Visit: Yes Status: Acute Qualifiers: Urinary tract infection type: acute cystitis Plan to address problem: mild Macrobid (5) DVT prophylaxis Current Visit: No Status: Acute Plan to address problem: On anticoagulation and GI prophylaxis (6) Advance care planning Current Visit: Yes Status: Acute Plan to address problem: Disease education conducted, care plan discussed, diagnosis discussed, prognosis discussed. Patient is full code. Patient acknowledged understanding and agreement with care plan. +30 minutes. Disposition: 01 HOME / SELF CARE / HOMELESS Final Discharge Diagnosis (Prints w/discharge instructions): diabetic ketoacidosis Time spent for discharge: 25 Core Measure Documentation - Palliative Care Palliative Care/ Comfort Measures: Not Applicable - Core Measures Any of the following diagnoses?: none Exam - Physical Exam Narrative exam: Physical Exam: VITAL SIGNS: Reviewed. GENERAL: The patient appears normally developed, Vital signs as documented. HEAD: No signs of head trauma. EYES: Pupils are equal. Extraocular motions intact. EARS: Hearing grossly intact. MOUTH: Oropharynx is normal. NECK: No adenopathy, no JVD. CHEST: Chest with clear breath sounds bilaterally. No wheezes, rales, or rhonchi. CARDIAC: Regular rate and rhythm. S1 and S2, without murmurs, gallops, or rubs. VASCULAR: No Edema. Peripheral pulses normal and equal in all extremities. ABDOMEN: Soft, non tender and non distended. No rebound or guarding, and no masses palpated. Bowel Sounds normal. MUSCULOSKELETAL: Good range of motion of all major joints. Extremities without clubbing, cyanosis or edema. NEUROLOGIC EXAM: Alert and oriented x 4. no focal sensory or strength deficits. PSYCHIATRIC: Mood normal. SKIN: detail exam as documented in skin assessment - Constitutional Vitals: Temp Pulse Resp BP Pulse Ox 98.6 F 89 23 94/63 100 10/10/21 20:29 10/11/21 10:31 10/11/21 10:31 10/11/21 10:31 10/11/21 10:31 Plan Follow up with: NANO FRENCH MD [Primary Care Provider] - 3-5 Days
== END 2021-10-11 18:58 | disposition home or self-care (01) ==
LOC: ED 11:48 → CC1 18:14 → INTOOBSV 18:14
PROVIDERS: ADMIT Internal Medicine; ATTEND Internal Medicine
DX: E10.10 Type 1 diabetes mellitus with ketoacidosis without coma (principal); N39.0 Urinary tract infection, site not specified; R53.1 Weakness; R11.0 Nausea; Z91.14 Patient's other noncompliance with medication regimen; Z79.4 Long term (current) use of insulin; Z79.899 Other long term (current) drug therapy; Z98.890 Other specified postprocedural states
CPT/HCPCS: 36415; 71045; 80048; 80053; 81001; 82140; 82805; 82962; 83036; 83735; 84100; 85027; 87040; 87086; 96361; 96365; 96366; 96367; 96372; 96375; 96376; 99291; G0378; J0696; J1644; J3480; J3490; J7030; J2354; Q9967; J1815